=== PATIENT | female | born 1945 | race Caucasian/White ===

== ENCOUNTER 2018-11-18 11:42 | Emergency (ER) | payer OTHER, BC ==
--- NOTE | 2018-11-18 11:59 | PDOC ---
History of Present Illness - General Chief Complaint: Urinary Problem Stated Complaint: POSSIBLE UTI POSSIBLE INCREASING CONFUSION PER Time Seen by Provider: 11/18/18 11:53 History Source: Patient, Family - History of Present Illness Initial Comments: 11/18/18 12:27 The patient is a 72 year old female with a PMH of HTN and Dementia who presents to the ED with daughter following an unwitnessed fall yesterday as well as an episode of hallucinations. Daughter @ bedside assists in history. States patient's heard a fall in the bedroom yesterday morning and found patient on the floor. Daughter unaware of patient c/o pre fall chest pain, shortness of breath, lightheadedness, palpitations. Patient ambulatory after fall. Patient states she went "thump" but unable to provide much h/o fall, denies any head trauma. Daughter states yesterday a few hours after the fall patient started to see a dog in the room as well as insects flying around her head, neither of which were present. Daughter also notes a h/o fall 1 week previous while walking down the stairs @ [employer] w/o head trauma. Patient was ambulatory immediately after fall. As per daughter patient lives with her and completes her ADL's with some assistance. Patient diagnosed with Alzheimer's in 2013. Follows with a gerentologist, who comes and evaluates her at home monthly. Last evaluation was in October 2018 with no concerning findings. NKDA Surgical: hysterectomy Social: social alcohol, denies other toxic habits As per EMR, patient not previously evaluated in our ED Past History - Past Medical History Allergies/Adverse Reactions: Allergies Allergy/AdvReac Type Severity Reaction Status Date / Time No Known Allergies Allergy Verified 04/29/14 15:26 Home Medications: Ambulatory Orders Amlodipine Besylate [Norvasc -] 5 mg PO DAILY 04/29/14 Atorvastatin Calcium [Lipitor] 20 mg PO DAILY 11/18/18 Cholecalciferol (Vitamin D3) [Vitamin D] 2,000 unit PO DAILY 11/18/18 Donepezil HCl [Aricept] 10 mg PO DAILY 11/18/18 Omeprazole 20 mg PO DAILY 11/18/18 Sertraline HCl [Zoloft -] 150 mg PO DAILY 11/18/18 HTN: Yes Hypercholesterolemia: Yes - Surgical History Orthopedic Surgery: Yes (BUNION) - Suicide/Smoking/Psychosocial Hx Smoking History: Former smoker Have you smoked in the past 12 months: No If you are a former smoker, when did you quit?: 30 YEARS Hx Alcohol Use: Yes (SOCIAL) Drug/Substance Use Hx: No Review of Systems - Review of Systems Able to Perform ROS?: No (dementia) *Physical Exam - Physical Exam General Appearance: Yes: Nourished, Appropriately Dressed HEENT: positive: Normal Voice, Hearing Grossly Normal Neck: positive: Trachea midline, Supple Respiratory/Chest: positive: Lungs Clear, Normal Breath Sounds Cardiovascular: positive: Regular Rhythm, Regular Rate, S1, S2. negative: Edema , JVD, Murmur Vascular Pulses: Dorsalis-Pedis (R): 2+, Doralis-Pedis (L): 2+ Gastrointestinal/Abdominal: positive: Normal Bowel Sounds, Soft. negative: Guarding, Rebound, Tenderness, Hepatomegaly Musculoskeletal: positive: Other (No C-spine or L/T/S tenderness; full ROM of RUE; R lateral hematoma; 2+ radial pulse B/L) Extremity: positive: Pelvis Stable, Other (RUE lateral hematoma) Integumentary: positive: Normal Color, Dry, Warm Neurologic: positive: Fully Oriented, Alert. negative: Confused, Disoriented Heart Score/ECG Review - Electrocardiogram EKG: Normal - Age Age: >/= 65 - Risk Factors Risk Factors Heart Score: Yes Hx Hypertension Based on the list above the patient has:: 1-2 risk factors - Troponin Troponin: </= normal limit - ECG Intrepretation Rhythm: Regular Rhythm - [place] Woodlake: Normal - ST and T Non Specific ST-T Wave changes: No Flattened T Waves: No Prolonged Q-T Interval: No - ECG Impressions Normal ECG: Yes Bradycardia: Yes ED Treatment Course - LABORATORY CBC & Chemistry Diagram: 11/18/18 12:50 11/18/18 12:50 Medical Decision Making - Medical Decision Making 11/18/18 12:34 72 year old female presents s/p fall and isolated episode of hallucinations. History limited 2/2 to dementia. VS unremarkable. A&O x4 at presentation Will obtain head CT to r/o brain bleed. Also consider fall 2/2 to polypharmacy, vs. infection (possibly UTI - denies symptoms) vs. cardiac (less likely). In addition to CT head will also obtain XR of RUE/shoulder as well as basic labs, Troponin x1, EKG, UA/urine culture. 11/18/18 14:[address] negative for acute bleed; RUE/R shoulder negative for acute fracture. CBC shows no leukocytosis Urine clean Troponin (-) x1, ECG non-ischemic, bradycardic as documented in ECG section of EMR. CMP significant for mild hyponatremia (Na 134) c/w reported decreased PO intake , will encourage dietary PO intake. Patient at baseline during course of admission w/o repeat hallucinations, A&O x4 including correctly identifying resistor tester. At this time have low clinical suspicion for acute deterioration. Will discharge home with return precautions, close monitoring by family, PMD follow-up Clinical Impression: Concussion vs. Dementia I discussed the physical exam findings, ancillary test results and final diagnoses with the patient. I answered all of the patient's questions. The patient was satisfied with the care received and felt comfortable with the discharge plan and treatment plan. The patient will return to the Emergency Department with any new, persistent or worsening symptoms. *DC/Admit/Observation/Transfer Diagnosis at time of Disposition: Fall - Discharge Dispostion Disposition: HOME Condition at time of disposition: Stable Decision to Admit order: No - Referrals - Patient Instructions Additional Instructions: You were evaluated today for a fall. A cat scan of your head showed no bleed and a x-ray of your arm and shoulder showed no fracture. At this time you are safe for discharge home. Please follow-up with your primary care doctor in the next 3 days. Return to the Emergency Department for any new/worsening/concerning symptoms. - Post Discharge Activity
[2018-11-18 12:10] VITALS: TEMP 97.6; BMI 25.3
[2018-11-18] MEDS ORDERED: SODIUM CHLORIDE 0.9% 500 ML INFUS.BAG IV ONE (12:25)
[2018-11-18 12:37] LABS: PH,URINE 5.5 (4.5-8); URINE APPEARANCE Slightly; URINE BILIRUBIN 1+ (NEGATIVE); URINE COLOR Amber; URINE GLUCOSE (UA) Negative (NEGATIVE); URINE KETONE Trace (NEGATIVE); URINE LEUK ESTERASE Negative (NEGATIVE); URINE NITRITE Negative (NEGATIVE); URINE PROTEIN 2+ (NEGATIVE); URINE UROBILINOGEN 0.2 (0.2-1.0)
[2018-11-18 13:18] LABS: EOS % 1.5 % (0-4.5)
[2018-11-18 13:21] LABS: ALBUMIN 3.7 g/dl (3.5-5.0); ALK PHOS 65 U/L (32-92); ANION GAP 8 MMOL/L (8-16); BILIRUBIN,TOTAL 0.3 mg/dl (0.2-1.0); BLOOD UREA NITROGEN 17 mg/dl (7-18); CALCIUM 9.3 mg/dl (8.4-10.2); CHLORIDE 105 mmol/L (98-107); CO2 21 mmol/L (22-28); GLUCOSE,RANDOM 87 mg/dl (74-106); POTASSIUM 3.8 mmol/L (3.5-5.1); SGOT/AST 15 U/L (10-42); SGPT/ALT 10 U/L (10-40); SODIUM 134 mmol/L (136-145); TOT PROT 6.9 g/dl (6.4-8.3)
[2018-11-18 13:35] LABS: CALCIUM OXALATE CRYSTALS FEW /hpf (NONE SEEN); EPI CELLS 2+ /HPF; URINE MUCUS 2+; URINE RBC 0-2 /hpf (0-3)
--- NOTE | 2018-11-18 13:36 | PDOC ---
Attending Attestation - Resident Resident Name: Christiane Quintero - ED Attending Attestation I have performed the following: I have examined & evaluated the patient, The case was reviewed & discussed with the resident, I agree w/resident's findings & plan, Exceptions are as noted - HPI HPI: 11/18/18 17:46 72 year old female with a PMH of HTN and Dementia who presents to the ED with daughter following an unwitnessed fall yesterday as well as a breif episode of hallucinations which have resolved. Hx from daughter, patient's heard a fall in the bedroom yesterday morning and found patient on the floor. No documented history or stated history of chest pain shortness of breath dizziness lightheadedness headache prior to or after the fall patient laboratory after the fall. No complaints sent to the ED for evaluation. - Physicial Exam PE: 11/18/18 17:47 Vitals: Triage Vital signs reviewed General Appearance: no acute distress, well nourished well developed, Head: Atraumatic, Eyes: Pupils equal reactive round, extraocular movement intact Neck: Supple;No Nucal rigidity Chest Wall: Nontender Cardiac: Regular rate and rhythym, no murmurs, no rubs, no gallops, Lungs: Clear to auscultation bilateral, good air movement bilaterally, Abdomen: Soft, non distended, normal bowel sounds, non tender to palpation Extremities: Slight bruising to right arm. Skin: Warm and dry, no rashes or lesions, no rash, no petechiae Neuro: AOX2; Cranial Nerves 2-12 grossly intact, Strength intact to all extremities, Sensation intact to all extremities,gait normal Psych: normal mood, normal affect 11/18/18 17:48 - Medical Decision Making 72 year old female with a PMH of HTN and Dementia who presents to the ED with daughter following an unwitnessed fall yesterday as well as an episode of hallucinations. Per the daughter patient is currently back to baseline mental status. She has a nonfocal neurologic examination her vital signs laboratory analysis head CT and x-rays of her right arm which was a little bit sore or unremarkable At this point after long discussion with patient and daughter patient is safe to return home she'll follow up with her primary care physician this week he'll return to ED for any returning symptoms or for any concerns. Heart Score/ECG Review - ECG Impressions Comment:: EKG demonstrates sinus rhythm no ST elevations or T-wave inversions.
[2018-11-18 13:40] LABS: BASO % 1.2 % (0-2.0); HEMATOCRIT 36.9 % (32.4-45.2); HEMOGLOBIN 12.2 GM/dl (10.7-15.3); LYMPH % 26.5 % (8-40); MCH 27.1 pg (25.7-33.7); MCHC 33.1 g/dl (32.0-36.0); MEAN CELL VOLUME 81.9 fl (80-96); MEAN PLT VOLUME 7.7 fl (7.5-11.1); MONO % 5.3 % (3.8-10.2); NEUT % 65.5 % (42.8-82.8); PLATELET COUNT 395 K/MM3 (134-434); RBC 4.51 M/mm3 (3.60-5.2); RDW 12.9 % (11.6-15.6); WHITE BLOOD COUNT 8.8 K/mm3 (4.0-10.8)
[2018-11-18 14:39] VITALS: BP 160/83; PULSE 60
--- NOTE | 2018-11-19 10:22 | EKG ---
Test Reason : Blood Pressure : / mmHG Vent. Rate : 052 BPM Atrial Rate : 052 BPM P-R Int : 206 ms QRS Dur : 102 ms QT Int : 476 ms P-R-T Axes : 024 -28 -16 degrees QTc Int : 442 ms SINUS BRADYCARDIA OTHERWISE NORMAL ECG WHEN COMPARED WITH ECG OF 12-APR-2000 11:19, QRS AXIS SHIFTED LEFT Confirmed by CHARY SALDIVAR MD ([id number]) on 11/19/2018 10:21:47 AM Referred By: KRISTIN GROSSMAN Confirmed By:CHARY SALDIVAR MD
== END 2018-11-18 14:39 | disposition home or self-care (01) ==
LOC: FER 11:42
PROC: 3E0337Z Introduction of Electrolytic and Water Balance Substance into Peripheral Vein, Percutaneous Approach (ICD-10-PCS; principal; 2018-11-18)
DX: Z04.3 Encounter for examination and observation following other accident (principal); I10 Essential (primary) hypertension; F03.90 Unspecified dementia, unspecified severity, without behavioral disturbance, psychotic disturbance, mood disturbance, and anxiety; W18.39XA Other fall on same level, initial encounter; Y93.9 Activity, unspecified; Y92.009 Unspecified place in unspecified non-institutional (private) residence as the place of occurrence of the external cause
CPT/HCPCS: 36415; 70450-TC; 73030-TC-RT-FY; 73060-TC-RT-FY; 80053; 81003; 81015; 84484; 85025; 93005; 99283-25

== ENCOUNTER 2019-01-14 13:10 | Inpatient (IN) | payer OTHER, BC ==
--- NOTE | 2019-01-14 14:29 | PDOC ---
History of Present Illness - General Chief Complaint: Syncope/Near Syncope Stated Complaint: SYNCOPE,VOMITING Time Seen by Provider: 01/14/19 14:29 History Source: Patient Exam Limitations: Dementia - History of Present Illness Initial Comments: Pt is a 73 yo F, with PMH of HTN and Alzheimer's dementia, who is presenting after a syncopal episode. Pt is accompanied by her daughter. Pt is oriented only to person at baseline, and does not remember the incident. The daughter states she was showering her mother on a shower chair, when the pt stated she felt nauseous, and had 1 episode on NBNB vomiting. Pt was then moved to the toilet, where she had 1 episode of NB loose brown stool, and then had a short ~ few seconds syncopal episode. Pt was lethargic afterwards, but had no generalized shaking, no tongue biting, and did not fall/hit her head. Pt does not take any anti-coagulant medications. Pt recently saw her PCP for cough/ reflux symptoms, and was told "she may have aspirated" per the daughter, but was sent home with no antibiotics. Pt denies any recent fevers/chills, headache , vision changes, chest pain, palpitations, SOB, abdominal pain, urinary symptoms, constipation, or leg swelling. She has had no other vomiting or loose stools this week. Pt has been seen for recent falls (presented to [place] [facility] in November 2018) , and was discharged after negative work-up for fall (negative CT, x-rays at that time). Social: Pt denies any cigarette, alcohol, or drug use. Pt denies any recent travel or sick contacts. Surgical: no relevant history. Family: no relevant history. 01/14/19 16:22 Past History - Travel Traveled outside of the country in the last 30 days: No Close contact w/someone who was outside of country & ill: No - Past Medical History Allergies/Adverse Reactions: Allergies Allergy/AdvReac Type Severity Reaction Status Date / Time No Known Allergies Allergy Verified 04/29/14 15:26 Home Medications: Ambulatory Orders Amlodipine Besylate [Norvasc -] 5 mg PO DAILY 04/29/14 Atorvastatin Calcium [Lipitor] 20 mg PO DAILY 11/18/18 Cholecalciferol (Vitamin D3) [Vitamin D] 2,000 unit PO DAILY 11/18/18 Donepezil HCl [Aricept] 10 mg PO DAILY 11/18/18 Omeprazole 20 mg PO DAILY 11/18/18 Sertraline HCl [Zoloft -] 150 mg PO DAILY 11/18/18 Hx Myocardial Infarction: No COPD: No CHF: No Diabetes: No HTN: Yes Hypercholesterolemia: Yes Psychiatric Problems: Yes (DEMENTIA DEPRESION) - Surgical History Abdominal Surgery: No Cardiac Surgery: No GI Surgery: No Neurologic Surgery: No Orthopedic Surgery: Yes ([facility]) - Suicide/Smoking/Psychosocial Hx Smoking History: Former smoker Have you smoked in the past 12 months: No If you are a former smoker, when did you quit?: 30 YEARS Hx Alcohol Use: Yes (SOCIAL) Drug/Substance Use Hx: No Review of Systems - Review of Systems Able to Perform ROS?: Yes Is the patient limited Danish proficient: No Constitutional: Yes: Weight Stable. No: Chills, Diaphoresis, Fever, Loss of Appetite, Weakness HEENTM: No: Recent change in vision, Double Vision, Nose Congestion, Hearing Loss, Throat Pain, Throat Swelling Respiratory: No: Cough, Orthopnea, Shortness of Breath Cardiac (ROS): Yes: Syncope. No: Chest Pain, Edema, Irregular Heart Rate, Lightheadedness, Palpitations, Chest Tightness ABD/GI: Yes: See HPI, Diarrhea, Nausea, Vomiting. No: Constipated, Poor Appetite, Poor Fluid Intake : No: Burning, Dysuria, Frequency, Pain, Urgency Musculoskeletal: No: Back Pain, Joint Pain Integumentary: No: Rash Neurological: No: Headache, Numbness, Paresthesia, Weakness, Unsteady Gait, Ataxia, Dizziness Psychiatric: No: Sleep Pattern Change, Change in Appetite Endocrine: No: Increased Urine, Change in Weight Hematologic/Lymphatic: No: Anemia, Blood Clots, Easy Bleeding, Easy Bruising All Other Systems: Reviewed and Negative *Physical Exam - Physical Exam Comments: Vitals stable, pt afebrile. Pt in NAD, normal body habitus. PE showed pt alert, but oriented to person and place only (pt baseline). hospital admitting clerk generally intact, muscular strength and sensation intact. Oropharynx without erythema or exudates. Dry oral mucosal membranes, decreased skin turgor. No nasal congestion , hearing intact. Clear heart sounds, S1/S2, no JVD, b/l pedal edema, or heart murmur. Clear lung sounds, no respiratory distress, wheezes, crackles, accessory muscle use, or respiratory distress. No abdominal or CVA tenderness to palpation, no rebound, no guarding. Abdomen soft, non-distended, and with normoactive bowel sounds. Skin without jaundice or rash. 01/14/19 16:22 ED Treatment Course - LABORATORY CBC & Chemistry Diagram: 01/14/19 15:03 01/14/19 15:03 Medical Decision Making - Medical Decision Making Pt was seen at bedside, also will be seen by attending Dr. Ho. Pt presenting after a syncopal episode. Pt is accompanied by her daughter. Pt is oriented only to person at baseline, and does not remember the incident. The daughter states she was showering her mother on a shower chair, when the pt stated she felt nauseous, and had 1 episode on NBNB vomiting. Pt was then moved to the toilet, where she had 1 episode of NB loose brown stool, and then had a short ~ few seconds syncopal episode. Pt was lethargic afterwards, but had no generalized shaking, no tongue biting, and did not fall/hit her head. Pt does not take any anti-coagulant medications. Pt recently saw her PCP for cough/ reflux symptoms, and was told "she may have aspirated" per the daughter, but was sent home with no antibiotics. Pt denies any recent fevers/chills, headache , vision changes, chest pain, palpitations, SOB, abdominal pain, urinary symptoms, constipation, or leg swelling. She has had no other vomiting or loose stools this week. Pt has been seen for recent falls (presented to [place] [facility] in November 2018) , and was discharged after negative work-up for fall (negative CT, x-rays at that time). Bedside glucose today 81. Vitals stable, pt afebrile. Pt in NAD, normal body habitus. PE showed pt alert, but oriented to person and place only (pt baseline). hospital admitting clerk generally intact, muscular strength and sensation intact. Oropharynx without erythema or exudates. Dry oral mucosal membranes, decreased skin turgor. No nasal congestion , hearing intact. Clear heart sounds, S1/S2, no JVD, b/l pedal edema, or heart murmur. Clear lung sounds, no respiratory distress, wheezes, crackles, accessory muscle use, or respiratory distress. No abdominal or CVA tenderness to palpation, no rebound, no guarding. Abdomen soft, non-distended, and with normoactive bowel sounds. Skin without jaundice or rash. Considering hypovolemia (GI infectious, dehydration) vs new cardiac pathology ( ACS vs arrhythmia) Ordered work-up including CBC, CMP, PT/INR, influenza, cardiac profile, chest x- ray, non-contrast head CT. Provided 500 mL IV NS for improvement of dry membranes/dehydration. Will continue to reassess pt and monitor for symptomatic improvement. ECG: Junctional rhythm, QRS 96, HR 54. TWIs in lateral leads, with flattening throughout. LAD which was present on prior ECG (11/2018). Pt HR on prior ER visit was in 50s-60s. 01/14/19 15:15 Chest x-ray shows patchy b/l infiltrates. Pt has no cardiac history (no CHF, no b/l pedal edema) Pt taken for head CT scan. 01/14/19 15:33 CBC: mild WBC 12.6, H/H stable CMP WNL, Trop <.02 01/14/19 16:17 Coags WNL. Influenza negative. 01/14/19 16:25 Considering elevated WBC, pending pt urine sample for UA and urine culture before admission. 01/14/19 16:36 UA pending in lab. Chest x-ray: mild b/l interstitial lung markings, no acute lung pathology. Borderline cardiomegaly. Head CT: moderate atrophy, no acute intracranial pathology. 01/14/19 17:31 UA negative for infection. Paging hospitalist team for admission. 01/14/19 17:35 Hospitalist team accepted pt for admission to [facility]. Pt comfortable, tolerating PO intake at bedside. 01/14/19 18:33 *DC/Admit/Observation/Transfer Diagnosis at time of Disposition: Syncope Qualifiers: Syncope type: unspecified Qualified Code(s): R55 - Syncope and collapse - Discharge Dispostion Condition at time of disposition: Stable Decision to Admit order: Yes - Referrals - Patient Instructions - Post Discharge Activity
[2019-01-14] MEDS ORDERED: SODIUM CHLORIDE 1,000 ML IV STA (14:54)
--- NOTE | 2019-01-14 15:23 | PDOC ---
Attending Attestation - HPI HPI: 01/14/19 15:27 The patient is a 73 year old female, with a significant past medical history of hypertension, dementia, multiple falls, who presents to the emergency department , accompanied by daughter who is a nurse, for evaluation after witnessing her mother have a syncopal episode today. The daughter states she sat her mother in a chair, the patient had an episode of NBNB emesis and then syncopized. The daughter states her mother loss control of her bowels after the syncopal episode. The daughter denies head trauma or shaking. Allergies: NKDA - Physicial Exam PE: 01/14/19 15:29 GENERAL: The patient is in no acute distress. HEAD: Normal with no signs of trauma. EYES: PERRLA, EOMI, sclera anicteric, conjunctiva clear. ENT: Ears normal, nares patent, oropharynx clear without exudates. Moist mucous membranes. NECK: Normal range of motion, supple without lymphadenopathy, JVD, or masses. LUNGS: Breath sounds equal, clear to auscultation bilaterally. No wheezes, and no crackles. HEART:Regular rate and rhythm, normal S1 and S2 without murmur, rub or gallop. ABDOMEN: Soft, nontender, normoactive bowel sounds. No guarding, no rebound. No masses palpable. EXTREMITIES: Normal range of motion, no edema. No clubbing or cyanosis. No erythema, or tenderness. NEUROLOGICAL: (+) alert, oriented to self. Cranial nerves II through XII grossly intact. Normal speech. No focal neurological deficits. MUSCULOSKELETAL: Back non-tender to palpation, no CVA tenderness SKIN: Warm, Dry, normal turgor, no rashes or lesions noted. <Teresa Quan - Last Filed: 01/14/19 15:26> - Resident Resident Name: Bita Pichardo - ED Attending Attestation I have performed the following: I have examined & evaluated the patient, The case was reviewed & discussed with the resident, I agree w/resident's findings & plan, Exceptions are as noted - Medical Decision Making 01/14/19 16:27 73 yo F s/p multiple falls Syncopal episode today No fevers or chills No chest pain, headache, abdominal pain Laboratory Tests 01/14/19 01/14/19 01/14/19 15:03 15:03 15:03 WBC 12.6 H Hgb 12.4 Hct 37.1 Plt Count 383 INR 0.98 BUN 18 Creatinine 0.9 Creatine Kinase 41 Troponin I < 0.02 Influenza A (Rapid) Influenza B (Rapid) 01/14/19 16:07 WBC Hgb Hct Plt Count INR BUN Creatinine Creatine Kinase Troponin I Influenza A (Rapid) Negative Influenza B (Rapid) Negative Will plan to place on observation given h/o recent falls and syncope Clinical impression: syncope, initial presentation <Monica Ho - Last Filed: 01/15/19 21:36> Attestations - Attestations 01/14/19 15:30 Documentation prepared by Teresa Quan, acting as medical surgical tech for Monica Ho MD <Teresa Quan - Last Filed: 01/14/19 15:26>
[2019-01-14 15:45] LABS: BASO % 0.5 % (0-2.0); EOS % 0.5 % (0-4.5); HEMATOCRIT 37.1 % (32.4-45.2); HEMOGLOBIN 12.4 GM/dL (10.7-15.3); LYMPH % 15.2 % (8-40); MCHC 33.5 g/dl (32.0-36.0); MEAN CELL VOLUME 80.6 fl (80-96); MEAN PLT VOLUME 7.2 fl (7.5-11.1); MONO % 5.4 % (3.8-10.2); NEUT % 78.4 % (42.8-82.8); PLATELET COUNT 383 K/MM3 (134-434); RDW 14.7 % (11.6-15.6); WHITE BLOOD COUNT 12.6 K/mm3 (4.0-10.0)
--- NOTE | 2019-01-14 16:03 | EKG ---
Test Reason : Blood Pressure : / mmHG Vent. Rate : 054 BPM Atrial Rate : 288 BPM P-R Int : 000 ms QRS Dur : 096 ms QT Int : 460 ms P-R-T Axes : 000 -25 -23 degrees QTc Int : 436 ms POOR DATA QUALITY, INTERPRETATION MAY BE ADVERSELY AFFECTED SINUS BRADYCARDIA CANNOT RULE OUT ANTERIOR INFARCT , AGE UNDETERMINED ABNORMAL ECG T WAVE INVERSION NOW EVIDENT IN LATERAL LEADS Confirmed by JANNA CARR, CHARY ([id number]) on 01/14/2019 4:03:21 PM Referred By: Confirmed By:CHARY SALDIVAR MD
[2019-01-14 16:09] LABS: ALBUMIN 3.6 g/dl (3.4-5.0); ALK PHOS 69 U/L (45-117); ANION GAP 9 MMOL/L (8-16); BILIRUBIN,TOTAL 0.3 mg/dL (0.2-1); BLOOD UREA NITROGEN 18 mg/dL (7-18); CALCIUM 9.1 mg/dL (8.5-10.1); CHLORIDE 105 mmol/L (98-107); CO2 24 mmol/L (21-32); CREATININE 0.9 mg/dL (0.55-1.3); GLUCOSE,RANDOM 81 mg/dL (74-106); MAGNESIUM 2.5 mg/dL (1.8-2.4); POTASSIUM 3.9 mmol/L (3.5-5.1); SGOT/AST 14 U/L (15-37); SGPT/ALT 13 U/L (13-61); SODIUM 138 mmol/L (136-145); TOT PROT 6.9 g/dl (6.4-8.2)
[2019-01-14 16:23] LABS: INR 0.98 (0.83-1.09); PROTHROMBIN TIME (PATIENT) 11.6 SEC (9.7-13.0)
[2019-01-14 17:24] LABS: URINE APPEARANCE CLEAR; URINE BILIRUBIN NEGATIVE (<2.0 mg/dL); URINE COLOR LTYELLOW; URINE GLUCOSE (UA) NEGATIVE (NEGATIVE); URINE KETONE NEGATIVE (NEGATIVE); URINE LEUK ESTERASE NEGATIVE (NEGATIVE); URINE NITRITE NEGATIVE (NEGATIVE); URINE PROTEIN NEGATIVE (NEGATIVE); URINE UROBILINOGEN NEGATIVE mg/dL (0.2-1.0)
--- NOTE | 2019-01-14 19:10 | HP ---
CHIEF COMPLAINT: Syncope PCP: Dr. Pedro Duong HISTORY OF PRESENT ILLNESS: The patient is a 73 yo f w/ PMH HTN, Alzheimer's dementia, mitral valve prolapse who was brought in by her daughter from home after a syncopal episode. The daughter states that she was showering the patient when she had a syncopal episode. The patient was seated in a chair in the shower when she leaned forward and became unresponsive. The patient became responsive again and stated that she did not feel well, after which she had an episode of NBNB vomiting. The patient's daughter picked her up and placed her on the toilet, where she had another syncopal episode with unresponsiveness, this one lasting approx. 1 minute. at this point, the patient's daughter called EMS. Per the patient's daughter, she had several other syncopal episodes and falls, some witnessed, some unwitnessed all since this past November. In addition to this, the patient has needed more assistance with her ADLs over the past month. Patient also has had decreased fluid intake. Currently, the patient's daughter states that the patient is at her baseline mental status. Patient denies chest pain, SOB, abdominal pain, dizziness, lightheadedness. ER course was notable for: (1) WBC 12.6, mag 2.5, UA neg, flu neg (2) CT head negative (3) Recent Travel: none PAST MEDICAL HISTORY: see HPI PAST SURGICAL HISTORY: none Social History: Smoking: denies Alcohol: denies Drugs: denies Family History: non-contributory Allergies No Known Allergies Allergy (Verified 04/29/14 15:26) HOME MEDICATIONS: Home Medications Medication Instructions Recorded Amlodipine Besylate [Norvasc -] 5 mg PO DAILY 04/29/14 Atorvastatin Calcium [Lipitor] 20 mg PO DAILY 11/18/18 Cholecalciferol (Vitamin D3) 2,000 unit PO DAILY 11/18/18 [Vitamin D] Donepezil HCl [Aricept] 10 mg PO DAILY 11/18/18 Omeprazole 20 mg PO DAILY 11/18/18 Sertraline HCl [Zoloft -] 150 mg PO DAILY 11/18/18 REVIEW OF SYSTEMS CONSTITUTIONAL: Absent: fever, chills, diaphoresis, generalized weakness, malaise, loss of appetite, weight change HEENT: Absent: rhinorrhea, nasal congestion, throat pain, throat swelling, difficulty swallowing, mouth swelling, ear pain, eye pain, visual changes CARDIOVASCULAR: Absent: chest pain, syncope, palpitations, irregular heart rate, lightheadedness , peripheral edema RESPIRATORY: Absent: cough, shortness of breath, dyspnea with exertion, orthopnea, wheezing, stridor, hemoptysis GASTROINTESTINAL: Absent: abdominal pain, abdominal distension, nausea, vomiting, diarrhea, constipation, melena, hematochezia GENITOURINARY: Absent: dysuria, frequency, urgency, hesitancy, hematuria, flank pain, genital pain MUSCULOSKELETAL: Absent: myalgia, arthralgia, joint swelling, back pain, neck pain SKIN: Absent: rash, itching, pallor HEMATOLOGIC/IMMUNOLOGIC: Absent: easy bleeding, easy bruising, lymphadenopathy, frequent infections ENDOCRINE: Absent: unexplained weight gain, unexplained weight loss, heat intolerance, cold intolerance NEUROLOGIC: Absent: headache, focal weakness or paresthesias, dizziness, unsteady gait, seizure, mental status changes, bladder or bowel incontinence PSYCHIATRIC: Absent: anxiety, depression, suicidal or homicidal ideation, hallucinations. PHYSICAL EXAMINATION GENERAL: Awake, alert, oriented to self only, in no acute distress. HEAD: Normal with no signs of trauma. EYES: Pupils equal, round and reactive to light, extraocular movements intact, sclera anicteric, conjunctiva clear. No lid lag. NECK: Normal range of motion, supple without lymphadenopathy, JVD, or masses. LUNGS: Breath sounds equal, clear to auscultation bilaterally. No wheezes, and no crackles. No accessory muscle use. HEART: Regular rate and rhythm, normal S1 and S2 without murmur, rub or gallop. ABDOMEN: Soft, nontender, not distended, normoactive bowel sounds, no guarding, no rebound, no masses. No hepatomegaly or splenomegaly. LOWER EXTREMITIES: 2+ pulses, warm, well-perfused. No calf tenderness. No peripheral edema. NEUROLOGICAL: Cranial nerves II-X intact. Normal speech. Normal gait. Strength 5/5 on all 4 limbs SKIN: Warm, dry, normal turgor, no rashes or lesions noted, normal capillary refill. Laboratory Results - last 24 hr 01/14/19 01/14/19 01/14/19 15:00 15:03 15:03 WBC 12.6 H RBC 4.60 Hgb 12.4 Hct 37.1 MCV 80.6 MCH 27.0 MCHC 33.5 RDW 14.7 Plt Count 383 MPV 7.2 L Absolute Neuts (auto) 9.9 H Neutrophils % 78.4 Lymphocytes % 15.2 Monocytes % 5.4 Eosinophils % 0.5 Basophils % 0.5 Nucleated RBC % 0 PT with INR 11.60 INR 0.98 Sodium Potassium Chloride Carbon Dioxide Anion Gap BUN Creatinine Creat Clearance w eGFR POC Glucometer 81 Random Glucose Calcium Magnesium Total Bilirubin AST ALT Alkaline Phosphatase Creatine Kinase Troponin I Total Protein Albumin Urine Color Urine Appearance Urine pH Ur Specific [place] Urine Protein Urine Glucose (UA) Urine Ketones Urine Blood Urine Nitrite Urine Bilirubin Urine Urobilinogen Ur Leukocyte Esterase Influenza A (Rapid) Influenza B (Rapid) 01/14/19 01/14/19 01/14/19 15:03 16:07 17:06 WBC RBC Hgb Hct MCV MCH MCHC RDW Plt Count MPV Absolute Neuts (auto) Neutrophils % Lymphocytes % Monocytes % Eosinophils % Basophils % Nucleated RBC % PT with INR INR Sodium 138 Potassium 3.9 Chloride 105 Carbon Dioxide 24 Anion Gap 9 BUN 18 Creatinine 0.9 Creat Clearance w eGFR > 60 POC Glucometer Random Glucose 81 Calcium 9.1 Magnesium 2.5 H Total Bilirubin 0.3 AST 14 L ALT 13 Alkaline Phosphatase 69 Creatine Kinase 41 Troponin I < 0.02 Total Protein 6.9 Albumin 3.6 Urine Color Ltyellow Urine Appearance Clear Urine pH 7.0 Ur Specific [place] 1.012 Urine Protein Negative Urine Glucose (UA) Negative Urine Ketones Negative Urine Blood Negative Urine Nitrite Negative Urine Bilirubin Negative Urine Urobilinogen Negative Ur Leukocyte Esterase Negative Influenza A (Rapid) Negative Influenza B (Rapid) Negative ASSESSMENT/PLAN: The patient is a 73 yo f w/ PMH HTN, alzheimers dementia, mitral valve prolapse who was BIBEMS after a syncopal episode at home. #syncopal episode possibly 2/2 cardiac vs vasovagal eitology -BP Sittin/87, HR 67 -BP Stand[place]/85, HR 88 -consider cardiology eval in AM -consider neuro eval in AM -consider MRI brain -consider carotid doppler in AM -trend trop -trend EKG -hold zoloft overnight #Dementia -c/w aricept 10mg #HTN -BP controlled -c/w norvasc 5mg #HLD -fasting lipids in AM -c/w lipitor 20mg -c/w zetia #FEN -no fluids indicated -lytes WNL -sodium controlled diet #prophy -lovenox 40mg SQ daily #dispo -admit tele inpatient Visit type - Emergency Visit Emergency Visit: Yes ED Registration Date: 01/14/19 Care time: The patient presented to the Emergency Department on the above date and was hospitalized for further evaluation of their emergent condition. - New Patient This patient is new to me today: Yes Date on this admission: 01/14/19 - Critical Care Critical Care patient: No
[2019-01-14] MEDS ORDERED: SODIUM CHLORIDE 1,000 ML IV SCH (19:15)
--- NOTE | 2019-01-14 19:16 | PN ---
Teaching Attending Note Name of Resident: Ernst Munoz ATTENDING PHYSICIAN STATEMENT I saw and evaluated the patient. I reviewed the resident's note and discussed the case with the resident. I agree with the resident's findings and plan as documented. SUBJECTIVE: Patient is a 73 year old woman with PMH of HTN, Mitral Valve Prolapse and Alzheimer's dementia, who is presenting after a syncopal episode. She is accompanied by her daughter, is oriented only to person at baseline, and does not remember the incident. The daughter states she was showering her mother on a shower chair, when the patient stated she felt nauseous, and had one episode on NBNB vomiting. She was then moved to the toilet, where she had one episode of NB loose brown stool, and then had a short ~few seconds syncopal episode. Patient was lethargic afterwards, but had no generalized shaking, no tongue biting, and did not fall/hit her head. She does not take any anti-coagulant medications and recently saw her PCP for cough/reflux symptoms, and was told "she may have aspirated" per the daughter, but was sent home with no antibiotics. She denies any recent fevers/chills, headache, vision changes, chest pain, palpitations, SOB, abdominal pain, urinary symptoms, constipation, or leg swelling. She has had no other vomiting or loose stools this week. She was seen for recent falls (presented to [facility] in November 2018), and was discharged after negative work-up for fall (negative CT, x-rays). OBJECTIVE: Alert and no orthostasis HEENT: No Jaundice, eye redness or discharge, PERRLA, EOMI. Normocephalic, atraumatic. External ears are normal and hearing is grossly intact. No nasal discharge. Neck: Supple, nontender. No palpable adenopathy or thyromegaly. No JVD Chest: Good effort. Clear to auscultation and percussion. Heart: Regular. No S3, rub or murmur Abdomen: Not distended, soft, nontender and no HSM. No rebound or guarding. Normoactive bowel sounds. Ext: Peripheral pulses intact. No leg edema. Skin: Warm and dry. No petechiae, rash or ecchymosis. Neuro: Alert. Oriented to person. Slow gait. CN 2-12 grossly intact. Sensation grossly intact in all four extremities and DTR are symmetric. Current Medications Generic Name Dose Route Start Last Admin Trade Name Tracy PRN Reason Stop Dose Admin Enoxaparin Sodium 40 mg 01/15/19 10:00 Lovenox - SQ DAILY [facility] Sodium Chloride 1,000 mls @ 50 mls/hr 01/14/19 19:15 Normal Saline - IV 01/15/19 15:14 ASDIR [facility] Home Medications Medication Instructions Recorded Amlodipine Besylate [Norvasc -] 5 mg PO DAILY 04/29/14 Atorvastatin Calcium [Lipitor] 20 mg PO DAILY 11/18/18 Cholecalciferol (Vitamin D3) 2,000 unit PO DAILY 11/18/18 [Vitamin D] Donepezil HCl [Aricept] 10 mg PO DAILY 11/18/18 Omeprazole 20 mg PO DAILY 11/18/18 Sertraline HCl [Zoloft -] 150 mg PO DAILY 11/18/18 Abnormal Lab Results 01/14/19 01/14/19 15:03 15:03 WBC 12.6 H MPV 7.2 L Absolute Neuts (auto) 9.9 H Magnesium 2.5 H AST 14 L ASSESSMENT AND PLAN: 1. Syncope - Etiology unclear. Had bradycardia on presentation with new T wave inversion in V4-5. CXR shows cardiomegaly and increased interstitial markings. Initial troponin is negative. Will admit to telemetry to rule out acute OH. Mild leukocytosis is unexplained - no other evidence of infection. Flu swab is negative. Will repeat CBC stat. Will get ECHO, fasting lipids, carotid doppler and brain MRI. Though not very common, fainting is a reported side effect of ZOLOFT. Will consult cardiology and neuroloy. Will avoid aggressive IV fluids for now. Got I liter IV NS in the ER. 2. DVT prophylaxis - Lovenox 40 mg SQ q 24 hours. 3. Advance directives - Full code
[2019-01-14 21:40] VITALS: BMI 26.9
[2019-01-15] MEDS ORDERED: diphenhydrAMINE HCL 25 MG CAPSULE (FP) PO ONE ×3 (00:05→23:38)
[2019-01-15 08:29] LABS: PROTHROMBIN TIME (PATIENT) 11.8 SEC (9.7-13.0)
[2019-01-15 08:32] LABS: ACTIVATED PTT 27.9 SECONDS (25.2-36.5)
[2019-01-15 08:38] LABS: ALBUMIN 3.3 g/dl (3.4-5.0); ALK PHOS 66 U/L (45-117); ANION GAP 9 MMOL/L (8-16); BILIRUBIN,TOTAL 0.3 mg/dL (0.2-1); BLOOD UREA NITROGEN 15 mg/dL (7-18); CALCIUM 8.9 mg/dL (8.5-10.1); CHLORIDE 105 mmol/L (98-107); CHOLESTEROL 160 mg/dL (50-200); CO2 24 mmol/L (21-32); GLUCOSE,RANDOM 82 mg/dL (74-106); HDL CHOLESTEROL 55 mg/dL (40-60); POTASSIUM 3.5 mmol/L (3.5-5.1); SGOT/AST 11 U/L (15-37); SGPT/ALT 13 U/L (13-61); SODIUM 139 mmol/L (136-145); TOT PROT 6.4 g/dl (6.4-8.2); TRIGLYCERIDES 110 mg/dL (0-150)
[2019-01-15 08:43] LABS: HEMATOCRIT 33.9 % (32.4-45.2); HEMOGLOBIN 11.5 GM/dL (10.7-15.3); MCH 27.1 pg (25.7-33.7); MEAN CELL VOLUME 79.6 fl (80-96); MEAN PLT VOLUME 7.2 fl (7.5-11.1); PLATELET COUNT 355 K/MM3 (134-434); RBC 4.25 M/mm3 (3.60-5.2); RDW 14.5 % (11.6-15.6); WHITE BLOOD COUNT 10.3 K/mm3 (4.0-10.0)
[2019-01-15] MEDS: ENOXAPARIN NA (PORCINE) 40 MG/0.4 ML DISP.SYRIN SQ SCH (09:15)
--- NOTE | 2019-01-15 12:52 | PN ---
Teaching Attending Note Name of Resident: Chris Amato ATTENDING PHYSICIAN STATEMENT I saw and evaluated the patient. I reviewed the resident's note and discussed the case with the resident. I agree with the resident's findings and plan as documented. SUBJECTIVE: Patient is comfortable with no acute distress, no shortness of breath, no nausea or vomiting. OBJECTIVE: Vital Signs Temperature 97.3 F L 01/14/19 14:09 Pulse Rate 84 01/15/19 05:35 Respiratory Rate 17 01/15/19 05:35 Blood Pressure 132/77 01/15/19 05:35 O2 Sat by Pulse Oximetry (%) 98 01/15/19 05:35 Initial Vital Signs Temp Pulse Resp BP Pulse Ox 97.3 F L 55 L 17 124/62 100 01/14/19 14:09 01/14/19 14:09 01/14/19 14:09 01/14/19 14:09 01/14/19 14:09 GENERAL: Awake, alert, oriented to self only, in no acute distress. HEAD: Normal with no signs of trauma. EYES: Pupils equal, round and reactive to light, extraocular movements intact, sclera anicteric, conjunctiva clear. No lid lag. NECK: Normal range of motion, supple without lymphadenopathy, JVD, or masses. LUNGS: Breath sounds equal, clear to auscultation bilaterally. No wheezes, and no crackles. No accessory muscle use. HEART: Regular rate and rhythm, normal S1 and S2 without murmur, rub or gallop. ABDOMEN: Soft, nontender, not distended, normoactive bowel sounds, no guarding, no rebound, no masses. No hepatomegaly or splenomegaly. LOWER EXTREMITIES: 2+ pulses, warm, well-perfused. No calf tenderness. No peripheral edema. NEUROLOGICAL: Cranial nerves II-X intact. Normal speech. Normal gait. Strength 5/5 on all 4 limbs SKIN: Warm, dry, normal turgor, no rashes or lesions noted, normal capillary refill. CBCD WBC 10.3 K/mm3 (4.0-10.0) H 01/15/19 07:05 RBC 4.25 M/mm3 (3.60-5.2) 01/15/19 07:05 Hgb 11.5 GM/dL (10.7-15.3) 01/15/19 07:05 Hct 33.9 % (32.4-45.2) 01/15/19 07:05 MCV 79.6 fl (80-96) L 01/15/19 07:05 MCHC 34.0 g/dl (32.0-36.0) 01/15/19 07:05 RDW 14.5 % (11.6-15.6) 01/15/19 07:05 Plt Count 355 K/MM3 (134-434) 01/15/19 07:05 MPV 7.2 fl (7.5-11.1) L 01/15/19 07:05 CMP Sodium 139 mmol/L (136-145) 01/15/19 07:05 Potassium 3.5 mmol/L (3.5-5.1) 01/15/19 07:05 Chloride 105 mmol/L (98-107) 01/15/19 07:05 Carbon Dioxide 24 mmol/L (21-32) 01/15/19 07:05 Anion Gap 9 MMOL/L (8-16) 01/15/19 07:05 BUN 15 mg/dL (7-18) 01/15/19 07:05 Creatinine 1.0 mg/dL (0.55-1.3) 01/15/19 07:05 Creat Clearance w eGFR 54.20 (>60) 01/15/19 07:05 Random Glucose 82 mg/dL (74-106) 01/15/19 07:05 Calcium 8.9 mg/dL (8.5-10.1) 01/15/19 07:05 Total Bilirubin 0.3 mg/dL (0.2-1) 01/15/19 07:05 AST 11 U/L (15-37) L 01/15/19 07:05 ALT 13 U/L (13-61) 01/15/19 07:05 Alkaline Phosphatase 66 U/L (45-117) 01/15/19 07:05 Total Protein 6.4 g/dl (6.4-8.2) 01/15/19 07:05 Albumin 3.3 g/dl (3.4-5.0) L 01/15/19 07:05 CARDIAC ENZYMES Creatine Kinase 41 U/L (26-192) 01/14/19 15:03 Troponin I < 0.02 ng/ml (0.00-0.05) 01/15/19 07:05 Current Medications Generic Name Dose Route Start Last Admin Trade Name Tracy PRN Reason Stop Dose Admin Enoxaparin Sodium 40 mg 01/15/19 10:00 01/15/19 09:15 Lovenox - SQ 40 mg DAILY [facility] Administration Home Medications Medication Instructions Recorded Amlodipine Besylate [Norvasc -] 5 mg PO DAILY 04/29/14 Atorvastatin Calcium [Lipitor] 20 mg PO DAILY 11/18/18 Cholecalciferol (Vitamin D3) 2,000 unit PO DAILY 11/18/18 [Vitamin D] Donepezil HCl [Aricept] 10 mg PO DAILY 11/18/18 Omeprazole 40 mg PO DAILY 11/18/18 Sertraline HCl [Zoloft -] 150 mg PO DAILY 11/18/18 Ezetimibe [Zetia] 10 mg PO 01/15/19 ASSESSMENT AND PLAN: This patient is a 73 yo female with PMHx of HTN, alzheimers dementia, mitral valve prolapse who was BIBEMS after a syncopal episode at home. #syncopal episode most likely vasovagal , orthostatic BP, cardiology eval appreciated. Carotid duplex, neuro consult #Dementia continue with aricept 10mg #HTN: BP controlled, continue norvasc 5mg #HLD : fasting lipids in AM , continue lipitor 20mg and zetia DVT px: lovenox 40mg SQ daily admit tele inpatient as per admitting team
--- NOTE | 2019-01-15 13:07 | CON.CARD ---
Cardiology Consult (text) - Consultation Consultation Note: cc: syncope hpi: 73 f hx htn, hld, dementia, here s/p syncope. Hx from family as pts dementia limits her history. Daughter was giving her a shower seated and pt reported nausea then vomited and had BM. She had LOC for few seconds per daughter. 2 similar episodes in past, mos apart. No cp sob palps dizzy pnd orthopnea le edema. Pt feeling well now. pmh: per hpi psh: nc social: no tob fam: nc ros: unable to obtain 2/2 dementia meds: Home Medications Medication Instructions Recorded Amlodipine Besylate [Norvasc -] 5 mg PO DAILY 04/29/14 Atorvastatin Calcium [Lipitor] 20 mg PO DAILY 11/18/18 Cholecalciferol (Vitamin D3) 2,000 unit PO DAILY 11/18/18 [Vitamin D] Donepezil HCl [Aricept] 10 mg PO DAILY 11/18/18 Omeprazole 40 mg PO DAILY 11/18/18 Sertraline HCl [Zoloft -] 150 mg PO DAILY 11/18/18 Ezetimibe [Zetia] 10 mg PO 01/15/19 pe: Vital Signs Period Temp Pulse Resp BP Sys/Cano Pulse Ox Last 24 Hr 97.3 F 55-84 17-18 124-132/62-77 98-100 nad no jvd rrr s1s2 no mrg cta bl nl eff awake alert confused no le e/c/c abd nt nd pos bs no jaundice diaphoresis pos dp pt no carotid bruits Laboratory Last Values WBC 10.3 K/mm3 (4.0-10.0) H 01/15/19 07:05 RBC 4.25 M/mm3 (3.60-5.2) 01/15/19 07:05 Hgb 11.5 GM/dL (10.7-15.3) 01/15/19 07:05 Hct 33.9 % (32.4-45.2) 01/15/19 07:05 MCV 79.6 fl (80-96) L 01/15/19 07:05 MCH 27.1 pg (25.7-33.7) 01/15/19 07:05 MCHC 34.0 g/dl (32.0-36.0) 01/15/19 07:05 RDW 14.5 % (11.6-15.6) 01/15/19 07:05 Plt Count 355 K/MM3 (134-434) 01/15/19 07:05 MPV 7.2 fl (7.5-11.1) L 01/15/19 07:05 Absolute Neuts (auto) 9.9 K/mm3 (1.5-8.0) H 01/14/19 15:03 Neutrophils % 78.4 % (42.8-82.8) 01/14/19 15:03 Lymphocytes % 15.2 % (8-40) 01/14/19 15:03 Monocytes % 5.4 % (3.8-10.2) 01/14/19 15:03 Eosinophils % 0.5 % (0-4.5) 01/14/19 15:03 Basophils % 0.5 % (0-2.0) 01/14/19 15:03 Nucleated RBC % 0 % (0-0) 01/14/19 15:03 PT with INR 11.80 SEC (9.7-13.0) 01/15/19 07:05 INR 1.00 (0.83-1.09) 01/15/19 07:05 PTT (Actin FS) 27.9 SECONDS (25.2-36.5) 01/15/19 07:05 Sodium 139 mmol/L (136-145) 01/15/19 07:05 Potassium 3.5 mmol/L (3.5-5.1) 01/15/19 07:05 Chloride 105 mmol/L (98-107) 01/15/19 07:05 Carbon Dioxide 24 mmol/L (21-32) 01/15/19 07:05 Anion Gap 9 MMOL/L (8-16) 01/15/19 07:05 BUN 15 mg/dL (7-18) 01/15/19 07:05 Creatinine 1.0 mg/dL (0.55-1.3) 01/15/19 07:05 Creat Clearance w eGFR 54.20 (>60) 01/15/19 07:05 POC Glucometer 81 UNITS (80-120) 01/14/19 15:00 Random Glucose 82 mg/dL (74-106) 01/15/19 07:05 Calcium 8.9 mg/dL (8.5-10.1) 01/15/19 07:05 Phosphorus 4.0 mg/dL (2.5-4.9) 01/15/19 07:05 Magnesium 2.0 mg/dL (1.8-2.4) 01/15/19 07:05 Total Bilirubin 0.3 mg/dL (0.2-1) 01/15/19 07:05 AST 11 U/L (15-37) L 01/15/19 07:05 ALT 13 U/L (13-61) 01/15/19 07:05 Alkaline Phosphatase 66 U/L (45-117) 01/15/19 07:05 Creatine Kinase 41 U/L (26-192) 01/14/19 15:03 Troponin I < 0.02 ng/ml (0.00-0.05) 01/15/19 07:05 Total Protein 6.4 g/dl (6.4-8.2) 01/15/19 07:05 Albumin 3.3 g/dl (3.4-5.0) L 01/15/19 07:05 Triglycerides 110 mg/dL (0-150) 01/15/19 07:05 Cholesterol 160 mg/dL (50-200) 01/15/19 07:05 Total LDL Cholesterol 87 mg/dL (5-100) 01/15/19 07:05 HDL Cholesterol 55 mg/dL (40-60) 01/15/19 07:05 TSH 1.82 uIU/ml (0.358-3.74) 01/15/19 07:05 Urine Color Ltyellow 01/14/19 17:06 Urine Appearance Clear 01/14/19 17:06 Urine pH 7.0 (5.0-8.0) 01/14/19 17:06 Ur Specific [place] 1.012 (1.010-1.035) 01/14/19 17:06 Urine Protein Negative (NEGATIVE) 01/14/19 17:06 Urine Glucose (UA) Negative (NEGATIVE) 01/14/19 17:06 Urine Ketones Negative (NEGATIVE) 01/14/19 17:06 Urine Blood Negative (NEGATIVE) 01/14/19 17:06 Urine Nitrite Negative (NEGATIVE) 01/14/19 17:06 Urine Bilirubin Negative (<2.0 mg/dL) 01/14/19 17:06 Urine Urobilinogen Negative mg/dL (0.2-1.0) 01/14/19 17:06 Ur Leukocyte Esterase Negative (NEGATIVE) 01/14/19 17:06 Influenza A (Rapid) Negative 01/14/19 16:07 Influenza B (Rapid) Negative 01/14/19 16:07 ecg: sr, nl intervals, nonspec tw changes, no sig change prior cxr: clear lungs a/p: 73 f hx htn, hld, dementia, here s/p syncope. syncope: -seems vasovagal based on description -no signs chf, acs, arrhythmia -echo benign -ortho vs wnl -rec'd increase po hydration as per family pt not drinking much at home htn: -cont norvasc hld: -cont statin cardiac pate ok for dc
--- NOTE | 2019-01-15 13:13 | ECHO ---
Name: LALIT ALBERTO Exam:Adult Echocardiogram Study Date: 01/15/2019 07:39 AM Age: 73 yrs Reason For Study: MVP Height: 67 in Weight: 157 lb BSA: 1.8 m2 MMode/2D Measurements & Calculations IVSd: 0.74 cm Ao root diam: 3.3 cm LVIDd: 4.9 cm LA dimension: 3.8 cm LVIDs: 2.8 cm ACS: 1.9 cm LVPWd: 0.76 cm IVSs: 1.2 cm LVPWs: 1.2 cm EDV(Teich): 111.5 ml ESV(Teich): 29.0 ml Doppler Measurements & Calculations MV E max ever: 72.1 cm/sec Ao V2 max: 145.4 cm/sec MV A max ever: 74.3 cm/sec Ao max P.5 mmHg MV E/A: 0.97 Ao V2 mean: 100.7 cm/sec Ao mean P.6 mmHg Ao V2 VTI: 32.6 cm AI P1/2t: 545.9 msec AI max ever: 325.8 cm/sec TR max ever: 235.1 cm/sec AI max P.5 mmHg TR max P.3 mmHg AI dec slope: 174.8 cm/sec2 PI end-d ever: 89.6 cm/sec Med Peak E' Ever: 5.4 cm/sec Med E/e': 13.4 Lat Peak E' Ever: 6.3 cm/sec Lat E/e': 11.4 Procedure A complete two-dimensional transthoracic echocardiogram was performed (2D, M-mode, Doppler and color flow Doppler). Left Ventricle The left ventricular size, thickness and function are normal. The left ventricular ejection fraction is normal. Ejection Fraction = 60-65%. The left ventricular wall motion is normal. Right Ventricle The right ventricle is normal in size and function. Atria Normal left and right atrial size and function. Mitral Valve There is no mitral regurgitation noted. Tricuspid Valve There is mild tricuspid regurgitation. Right ventricular systolic pressure is normal. Aortic Valve The aortic valve is trileaflet. No hemodynamically significant valvular aortic stenosis. No aortic regurgitation is present. Pulmonic Valve There is no pulmonic valvular regurgitation. Great Vessels The aortic root is normal size. Pericardium/Pleura There is no pericardial effusion. Interpretation Summary The left ventricular size, thickness and function are normal The right ventricle is normal in size and function. There is mild tricuspid regurgitation. MD Pedro Denis 01/15/2019 01:12 PM
--- NOTE | 2019-01-15 14:28 | PN ---
Physical Exam: SUBJECTIVE: Patient seen and examined at bedside. Daughter at bedside providing information. Pt not in any acute distress. Resting comfortably. OBJECTIVE: Vital Signs Period Temp Pulse Resp BP Sys/Cano Pulse Ox Last 24 Hr 55-84 17-18 128-132/66-77 98-100 GENERAL: NAD Resting in bed. HEAD: NC/AT EYES: EOMI ENT: MMM Neck supple NECK: Trachea midline, full range of motion, supple. LUNGS: Dec breath sounds at bases HEART: RRR S1S2 ABDOMEN: NDNT No HSM EXTREMITIES: No CCE SKIN: Warm, dry, normal turgor, no rashes or lesions noted Laboratory Results - last 24 hr 01/14/19 01/14/19 01/14/19 15:00 15:03 15:03 WBC 12.6 H RBC 4.60 Hgb 12.4 Hct 37.1 MCV 80.6 MCH 27.0 MCHC 33.5 RDW 14.7 Plt Count 383 MPV 7.2 L Absolute Neuts (auto) 9.9 H Neutrophils % 78.4 Lymphocytes % 15.2 Monocytes % 5.4 Eosinophils % 0.5 Basophils % 0.5 Nucleated RBC % 0 PT with INR 11.60 INR 0.98 PTT (Actin FS) Sodium Potassium Chloride Carbon Dioxide Anion Gap BUN Creatinine Creat Clearance w eGFR POC Glucometer 81 Random Glucose Calcium Phosphorus Magnesium Total Bilirubin AST ALT Alkaline Phosphatase Creatine Kinase Troponin I Total Protein Albumin Triglycerides Cholesterol Total LDL Cholesterol HDL Cholesterol TSH Urine Color Urine Appearance Urine pH Ur Specific [place] Urine Protein Urine Glucose (UA) Urine Ketones Urine Blood Urine Nitrite Urine Bilirubin Urine Urobilinogen Ur Leukocyte Esterase Influenza A (Rapid) Influenza B (Rapid) 01/14/19 01/14/19 01/14/19 15:03 16:07 17:06 WBC RBC Hgb Hct MCV MCH MCHC RDW Plt Count MPV Absolute Neuts (auto) Neutrophils % Lymphocytes % Monocytes % Eosinophils % Basophils % Nucleated RBC % PT with INR INR PTT (Actin FS) Sodium 138 Potassium 3.9 Chloride 105 Carbon Dioxide 24 Anion Gap 9 BUN 18 Creatinine 0.9 Creat Clearance w eGFR > 60 POC Glucometer Random Glucose 81 Calcium 9.1 Phosphorus Magnesium 2.5 H Total Bilirubin 0.3 AST 14 L ALT 13 Alkaline Phosphatase 69 Creatine Kinase 41 Troponin I < 0.02 Total Protein 6.9 Albumin 3.6 Triglycerides Cholesterol Total LDL Cholesterol HDL Cholesterol TSH Urine Color Ltyellow Urine Appearance Clear Urine pH 7.0 Ur Specific [place] 1.012 Urine Protein Negative Urine Glucose (UA) Negative Urine Ketones Negative Urine Blood Negative Urine Nitrite Negative Urine Bilirubin Negative Urine Urobilinogen Negative Ur Leukocyte Esterase Negative Influenza A (Rapid) Negative Influenza B (Rapid) Negative 01/15/19 01/15/19 01/15/19 00:05 07:05 07:05 WBC 10.3 H RBC 4.25 Hgb 11.5 Hct 33.9 MCV 79.6 L MCH 27.1 MCHC 34.0 RDW 14.5 Plt Count 355 MPV 7.2 L Absolute Neuts (auto) Neutrophils % Lymphocytes % Monocytes % Eosinophils % Basophils % Nucleated RBC % PT with INR 11.80 INR 1.00 PTT (Actin FS) 27.9 Sodium Potassium Chloride Carbon Dioxide Anion Gap BUN Creatinine Creat Clearance w eGFR POC Glucometer Random Glucose Calcium Phosphorus Magnesium Total Bilirubin AST ALT Alkaline Phosphatase Creatine Kinase Troponin I < 0.02 Total Protein Albumin Triglycerides Cholesterol Total LDL Cholesterol HDL Cholesterol TSH Urine Color Urine Appearance Urine pH Ur Specific [place] Urine Protein Urine Glucose (UA) Urine Ketones Urine Blood Urine Nitrite Urine Bilirubin Urine Urobilinogen Ur Leukocyte Esterase Influenza A (Rapid) Influenza B (Rapid) 01/15/19 07:05 WBC RBC Hgb Hct MCV MCH MCHC RDW Plt Count MPV Absolute Neuts (auto) Neutrophils % Lymphocytes % Monocytes % Eosinophils % Basophils % Nucleated RBC % PT with INR INR PTT (Actin FS) Sodium 139 Potassium 3.5 Chloride 105 Carbon Dioxide 24 Anion Gap 9 BUN 15 Creatinine 1.0 Creat Clearance w eGFR 54.20 POC Glucometer Random Glucose 82 Calcium 8.9 Phosphorus 4.0 Magnesium 2.0 Total Bilirubin 0.3 AST 11 L ALT 13 Alkaline Phosphatase 66 Creatine Kinase Troponin I < 0.02 Total Protein 6.4 Albumin 3.3 L Triglycerides 110 Cholesterol 160 Total LDL Cholesterol 87 HDL Cholesterol 55 TSH 1.82 Urine Color Urine Appearance Urine pH Ur Specific [place] Urine Protein Urine Glucose (UA) Urine Ketones Urine Blood Urine Nitrite Urine Bilirubin Urine Urobilinogen Ur Leukocyte Esterase Influenza A (Rapid) Influenza B (Rapid) Active Medications Generic Name Dose Route Start Last Admin Trade Name Freq PRN Reason Stop Dose Admin Enoxaparin Sodium 40 mg 01/15/19 10:00 01/15/19 09:15 Lovenox - SQ 40 mg DAILY DOC Administration ASSESSMENT/PLAN: The patient is a 73 yo f w/ PMH HTN, alzheimers dementia, mitral valve prolapse who was BIBEMS after a syncopal episode at home while taking a shower. #syncopal episode possibly 2/2 cardiac vs vasovagal etiology -BP Sittin/87, HR 67 -BP Standin/85, HR 88 -Dr Denis on board---> LV size WNL in size, function and thickness. EF 60- 65%. -Troponins neg x3 -trend EKG -Carotid ultrasound performed. Pending official read -Neurology consult. -Head CT negative #Dementia - Aricept 10mg #HTN -Norvasc 5mg #HLD -fasting lipids WNL -lipitor 10mg -zetia 10 mg #FEN -NS@42 cc -Monitor Electrolytes -sodium controlled diet #proph -lovenox 40mg SQ daily #dispo -tele Visit type - Emergency Visit Emergency Visit: Yes ED Registration Date: 01/14/19 Care time: The patient presented to the Emergency Department on the above date and was hospitalized for further evaluation of their emergent condition. - New Patient This patient is new to me today: Yes Date on this admission: 01/15/19 - Critical Care Critical Care patient: No - Discharge Referral Referred to [facility] Med P.C.: No
--- NOTE | 2019-01-15 15:36 | EKG ---
Test Reason : Blood Pressure : / mmHG Vent. Rate : 059 BPM Atrial Rate : 059 BPM P-R Int : 222 ms QRS Dur : 106 ms QT Int : 598 ms P-R-T Axes : 051 -22 -22 degrees QTc Int : 592 ms SINUS BRADYCARDIA WITH 1ST DEGREE A-V BLOCK NONSPECIFIC ST AND T WAVE ABNORMALITY ABNORMAL ECG WHEN COMPARED WITH ECG OF 14-JAN-2019 14:25, SINUS RHYTHM HAS REPLACED JUNCTIONAL RHYTHM NONSPECIFIC T WAVE ABNORMALITY HAS REPLACED INVERTED T WAVES IN ANTERIOR LEADS QT HAS LENGTHENED Confirmed by KRISTIN ZELAYA MD ([id number]) on 01/15/2019 3:36:17 PM Referred By: Confirmed By:KRISTIN ZELAYA MD
[2019-01-15] MEDS ORDERED: SODIUM CHLORIDE 1,000 ML IV SCH (17:45)
[2019-01-15] MEDS ORDERED: FLU VACCINE QUAD 60 MCG/0.5 ML (MDV 18-19) IM ONE (18:40)
[2019-01-15] MEDS ORDERED: ATORVASTATIN CA 10 MG TABLET (FP) PO SCH (22:00)
[2019-01-16 07:34] LABS: HEMATOCRIT 34.2 % (32.4-45.2); HEMOGLOBIN 11.4 GM/dL (10.7-15.3); MCH 26.7 pg (25.7-33.7); MCHC 33.4 g/dl (32.0-36.0); MEAN CELL VOLUME 79.8 fl (80-96); MEAN PLT VOLUME 7.2 fl (7.5-11.1); PLATELET COUNT 340 K/MM3 (134-434); RBC 4.28 M/mm3 (3.60-5.2); RDW 14.7 % (11.6-15.6); WHITE BLOOD COUNT 11.6 K/mm3 (4.0-10.0)
[2019-01-16 08:33] LABS: ANION GAP 8 MMOL/L (8-16); BLOOD UREA NITROGEN 14 mg/dL (7-18); CHLORIDE 106 mmol/L (98-107); CO2 24 mmol/L (21-32); GLUCOSE,RANDOM 100 mg/dL (74-106); MAGNESIUM 2.6 mg/dL (1.8-2.4); PHOSPHOROUS 3.9 mg/dL (2.5-4.9); POTASSIUM 3.9 mmol/L (3.5-5.1); SODIUM 137 mmol/L (136-145)
--- NOTE | 2019-01-16 09:32 | CON.NEURO ---
Consult - History of Present Illness History of Present Illness: 73 yo f w/ PMH HTN, Alzheimer's dementia, mitral valve prolapse who was brought in by her daughter from home after a syncopal episode. The daughter states that she was showering the patient when she had a syncopal episode. The patient was seated in a chair in the shower when she leaned forward and became unresponsive. The patient became responsive again and stated that she did not feel well, after which she had an episode of NBNB vomiting. The patient's daughter picked her up and placed her on the toilet, where she had another syncopal episode with unresponsiveness, this one lasting approx. 1 minute. at this point, the patient's daughter called EMS. passed out x 15 seconmds, mild NV prior and diarrhea. similar events last couple months, no HX of SZ. now back at baseline. Doppler (-) HD CT -white matter changes - Alcohol/Substance Use Hx Alcohol Use: Yes (SOCIAL) - Smoking History Smoking history: Former smoker Have you smoked in the past 12 months: No If you are a former smoker, when did you quit?: 30 YEARS Home Medications - Allergies Allergies/Adverse Reactions: Allergies Allergy/AdvReac Type Severity Reaction Status Date / Time No Known Allergies Allergy Verified 04/29/14 15:26 - Home Medications Home Medications: Ambulatory Orders Amlodipine Besylate [Norvasc -] 5 mg PO DAILY 04/29/14 Atorvastatin Calcium [Lipitor] 20 mg PO DAILY 11/18/18 Cholecalciferol (Vitamin D3) [Vitamin D] 2,000 unit PO DAILY 11/18/18 Donepezil HCl [Aricept] 10 mg PO DAILY 11/18/18 Omeprazole 40 mg PO DAILY 11/18/18 Sertraline HCl [Zoloft -] 150 mg PO DAILY 11/18/18 Ezetimibe [Zetia] 10 mg PO 01/15/19 Physical Exam-Neuro Vital Signs: Vital Signs Temperature 98.2 F 01/16/19 05:00 Pulse Rate 68 01/16/19 05:00 Respiratory Rate 20 01/16/19 05:00 Blood Pressure 153/83 01/16/19 05:00 O2 Sat by Pulse Oximetry (%) 97 01/15/19 19:12 Constitutional: Yes: Well Nourished Labs: CBC, BMP 01/16/19 06:40 01/16/19 06:40 INR, PTT INR 1.00 (0.83-1.09) 01/15/19 07:05 - Neuro Exam Level Of Consciousness: Yes: Alert (awake, alert, not oriented to place, yr, season, EOMI, no drift, no tremor, no focal weakness) Imaging - Results Cat Scan: Report Reviewed, Image Reviewed Problem List - Problems (1) Dementia in Alzheimer's disease Code(s): G30.9 - ALZHEIMER'S DISEASE, UNSPECIFIED; F02.80 - DEMENTIA IN OTH DISEASES CLASSD ELSWHR W/O BEHAVRL DISTURB (2) Syncope Code(s): R55 - SYNCOPE AND COLLAPSE Qualifiers: Syncope type: unspecified Qualified Code(s): R55 - Syncope and collapse Assessment/Plan 73 yo f w/ PMH HTN, Alzheimer's dementia, mitral valve prolapse who was brought in by her daughter from home after a syncopal episode. The daughter states that she was showering the patient when she had a syncopal episode. The patient was seated in a chair in the shower when she leaned forward and became unresponsive. The patient became responsive again and stated that she did not feel well, after which she had an episode of NBNB vomiting. The patient's daughter picked her up and placed her on the toilet, where she had another syncopal episode with unresponsiveness, this one lasting approx. 1 minute. at this point, the patient's daughter called EMS. Per the patient's daughter, she had several other syncopal episodes and falls, some witnessed, some unwitnessed all since this past November. NO HX of Seizure. back to baseline, HD CT -white matter changes AP : Syncope--likely in setting of possible enteritis/ dehydration--no clear stigmata for Seizure. Doppler (-) Given recurrent events can get routine EEG-can be done outpt. No MRI nec. Dementia- ALZ type, mild, due to start namenda as an outpt, as well as will arrange NEUROPSYCH testing as an outpt. neurology cleared, DR RICHTER [phone]
[2019-01-16] MEDS ORDERED: amLODIPine BESYLATE 5 MG TABLET (FP) PO SCH (10:00)
[2019-01-16] MEDS ORDERED: EZETIMIBE 10 MG TABLET (FP) PO SCH (10:00)
[2019-01-16] MEDS ORDERED: FLU VACCINE QUAD 60 MCG/0.5 ML (MDV 18-19) IM ONE (10:00)
[2019-01-16] MEDS ORDERED: DONEPEZIL HCL 10 MG TABLET (FP) PO SCH (10:00)
[2019-01-16] MEDS ORDERED: SERTRALINE HCL 50 MG TABLET (FP) PO SCH (10:00)
[2019-01-16] MEDS: ENOXAPARIN NA (PORCINE) 40 MG/0.4 ML DISP.SYRIN SQ SCH (10:23)
--- NOTE | 2019-01-16 10:38 | PN ---
Progress Note (short form) - Note Progress Note: s: no cp sob palps dizzy o: Vital Signs Period Temp Pulse Resp BP Sys/Cano Pulse Ox Last 24 Hr 97.5 F-98.8 F 18- 17-20 128-168/54-83 97 nad no jvd rrr s1s2 no mrg cta bl nl eff awake alert confused no le e/c/c abd nt nd pos bs no jaundice diaphoresis Current Medications Generic Name Dose Route Start Last Admin Trade Name Tracy PRN Reason Stop Dose Admin Amlodipine Besylate 5 mg 01/16/19 10:00 01/16/19 10:24 Norvasc - PO 5 mg DAILY DOC Administration Atorvastatin Calcium 10 mg 01/15/19 22:00 01/15/19 23:11 Lipitor - PO 10 mg HS DOC Administration Donepezil HCl 10 mg 01/16/19 10:00 01/16/19 10:24 Aricept - PO 10 mg DAILY DOC Administration Ezetimibe 10 mg 01/16/19 10:00 01/16/19 10:24 Zetia - PO 10 mg DAILY DOC Administration Enoxaparin Sodium 40 mg 01/15/19 10:00 01/16/19 10:23 Lovenox - SQ 40 mg DAILY DOC Administration Sodium Chloride 1,000 mls @ 42 mls/hr 01/15/19 17:45 01/15/19 23:12 Normal Saline - IV 42 mls/hr ASDIR DOC Administration Sertraline HCl 150 mg 01/16/19 10:00 01/16/19 10:24 Zoloft - PO 150 mg DAILY DOC Administration CBC, BMP 01/16/19 06:40 01/16/19 06:40 ecg: sr, nl intervals, nonspec tw changes, no sig change prior cxr: clear lungs tele: sr echo 01/2019: nl lv/rv, mild tr, nl rvsp a/p: 73 f hx htn, hld, dementia, here s/p syncope. syncope: -seems vasovagal based on description -no signs chf, acs, arrhythmia -echo, carotids, tele benign -ortho vs wnl -rec'd increase po hydration as per family pt not drinking much at home htn: -cont norvasc hld: -cont statin cardiac pate ok for dc
--- NOTE | 2019-01-16 14:02 | DS ---
Physical Exam: SUBJECTIVE: Patient seen and examined at bedside. No acute events overnight. Daughter at bedside. OBJECTIVE: Vital Signs Period Temp Pulse Resp BP Sys/Cano Pulse Ox Last 24 Hr 97.5 F-98.8 F 18-100 17-20 111-168/54-83 97 PHYSICAL EXAM GENERAL: NAD Resting in bed. HEAD: Atraumatic/ Normocephalic EYES: EOMI Sclera Clear ENT: MMM Neck supple NECK: Trachea midline, full range of motion, supple. LUNGS: Dec breath sounds at bases HEART: RRR S1S2 ABDOMEN: nontender nondistended no guarding or rigidity EXTREMITIES: No CCE SKIN: Warm, dry, normal turgor, no rashes or lesions noted LABS Laboratory Results - last 24 hr 01/16/19 01/16/19 06:40 06:40 WBC 11.6 H RBC 4.28 Hgb 11.4 Hct 34.2 MCV 79.8 L MCH 26.7 MCHC 33.4 RDW 14.7 Plt Count 340 MPV 7.2 L Sodium 137 Potassium 3.9 Chloride 106 Carbon Dioxide 24 Anion Gap 8 BUN 14 Creatinine 1.0 Creat Clearance w eGFR 54.20 Random Glucose 100 Calcium 9.0 Phosphorus 3.9 Magnesium 2.6 H HOSPITAL COURSE: Date of Admission:01/14/19 Pt is a 73 y/o lady with a PMH of HTN, alzheimers dementia, and mitral valve prolapse who presented to the hospital after experiencing a syncopal episode at her house while she was in the shower. Imaging of pt's head did not reveal any bleeding or acute changes. Pt also underwent an echo and carotid doppler which were both WNL. Orthostatic Vital signs were WNL. Pt was informed to follow up with Neurology to undergo an EEG as well as assess a possible shuffling gait reported by pt's daughter. Date of Discharge: 01/16/19 Minutes to complete discharge: 35 Discharge Summary Reason For Visit: SYNCOPE Current Active Problems Dementia in Alzheimer's disease (Acute) Syncope (Acute) Condition: Improved - Instructions Diet, Activity, Other Instructions: You presented to the hospital due to syncope. You underwent imaging studies to determine the cause of your syncope. Imaging did not reveal any causes of your syncope. You were seen by a cocoa butter filter operator and a Neurologist during your stay. It is very important for you to follow up with these specialist to further work you up. In addition, it was noted that you are experiencing an abnormality with your gait. This may be indicative of a neurological disease called Parkinson's disease. A referral has been attached to your paperwork for you to follow up with the neurologist once you leave the hospital. Please follow up with the following provider's within 1 week: Dr Ethan Chong--Neurologist WITHIN A WEEK PERIOD. PLEASE CALL FOR AN APPOINTMENT. Your Primary Care Physician Dr Pedro Denis--Education Finance Processor If you begin to experience dizziness, chest pain, shortness of breath, or any other symptoms, please return to the emergency department immediately. Please continue to take all of your home medications as prescribed. Referrals: Pedro Denis MD [Staff Physician] - 2 Weeks Ethan Chong DO [Staff Physician] - 1 Week Disposition: CARE HOME FACILITY - Home Medications Comprehensive Discharge Medication List: Ambulatory Orders Amlodipine Besylate [Norvasc -] 5 mg PO DAILY 04/29/14 Atorvastatin Calcium [Lipitor] 20 mg PO DAILY 11/18/18 Cholecalciferol (Vitamin D3) [Vitamin D] 2,000 unit PO DAILY 11/18/18 Donepezil HCl [Aricept] 10 mg PO DAILY 11/18/18 Omeprazole 40 mg PO DAILY 11/18/18 Sertraline HCl [Zoloft -] 150 mg PO DAILY 11/18/18 Ezetimibe [Zetia] 10 mg PO 01/15/19 This patient is new to me today: No Emergency Visit: Yes ED Registration Date: 01/14/19 Care time: The patient presented to the Emergency Department on the above date and was hospitalized for further evaluation of their emergent condition. Critical Care patient: No - Discharge Referral Referred to [facility] Med P.C.: No
[2019-01-16 15:11] VITALS: BP 129/70; PULSE 68; TEMP 97.4
--- NOTE | 2019-01-16 19:25 | PN ---
Teaching Attending Note Name of Resident: Chris Amato ATTENDING PHYSICIAN STATEMENT I saw and evaluated the patient. I reviewed the resident's note and discussed the case with the resident. I agree with the resident's findings and plan as documented. SUBJECTIVE: Patient is comfortable with no acute distress, no shortness of breath. As per daughter who is at bedside, patient has a shuffeling gait. OBJECTIVE: Vital Signs Temperature 97.4 F L 01/16/19 15:00 Pulse Rate 68 01/16/19 15:00 Respiratory Rate 18 01/16/19 15:00 Blood Pressure 129/70 01/16/19 15:00 O2 Sat by Pulse Oximetry (%) 97 01/15/19 19:12 GENERAL: Awake, alert, oriented to self only, in no acute distress. HEAD: Normal with no signs of trauma. EYES: Pupils equal, round and reactive to light, extraocular movements intact, sclera anicteric, conjunctiva clear. NECK: Normal range of motion, supple without lymphadenopathy, JVD, or masses. LUNGS: Breath sounds equal, clear to auscultation bilaterally. No wheezes, and no crackles. No accessory muscle use. HEART: Regular rate and rhythm, normal S1 and S2 without murmur, rub or gallop. ABDOMEN: Soft, nontender, not distended, normoactive bowel sounds, no guarding, no rebound, no masses. No hepatomegaly or splenomegaly. EXTREMITIES: 2+ pulses, warm, well-perfused. No calf tenderness. No peripheral edema. NEUROLOGICAL: Cranial nerves II-X intact. Normal speech. Normal gait. Strength 5/5 on all 4 limbs SKIN: Warm, dry, normal turgor, no rashes or lesions noted, normal capillary refill. CBCD WBC 11.6 K/mm3 (4.0-10.0) H 01/16/19 06:40 RBC 4.28 M/mm3 (3.60-5.2) 01/16/19 06:40 Hgb 11.4 GM/dL (10.7-15.3) 01/16/19 06:40 Hct 34.2 % (32.4-45.2) 01/16/19 06:40 MCV 79.8 fl (80-96) L 01/16/19 06:40 MCHC 33.4 g/dl (32.0-36.0) 01/16/19 06:40 RDW 14.7 % (11.6-15.6) 01/16/19 06:40 Plt Count 340 K/MM3 (134-434) 01/16/19 06:40 MPV 7.2 fl (7.5-11.1) L 01/16/19 06:40 CMP Sodium 137 mmol/L (136-145) 01/16/19 06:40 Potassium 3.9 mmol/L (3.5-5.1) 01/16/19 06:40 Chloride 106 mmol/L (98-107) 01/16/19 06:40 Carbon Dioxide 24 mmol/L (21-32) 01/16/19 06:40 Anion Gap 8 MMOL/L (8-16) 01/16/19 06:40 BUN 14 mg/dL (7-18) 01/16/19 06:40 Creatinine 1.0 mg/dL (0.55-1.3) 01/16/19 06:40 Creat Clearance w eGFR 54.20 (>60) 01/16/19 06:40 Random Glucose 100 mg/dL (74-106) 01/16/19 06:40 Calcium 9.0 mg/dL (8.5-10.1) 01/16/19 06:40 Total Bilirubin 0.3 mg/dL (0.2-1) 01/15/19 07:05 AST 11 U/L (15-37) L 01/15/19 07:05 ALT 13 U/L (13-61) 01/15/19 07:05 Alkaline Phosphatase 66 U/L (45-117) 01/15/19 07:05 Total Protein 6.4 g/dl (6.4-8.2) 01/15/19 07:05 Albumin 3.3 g/dl (3.4-5.0) L 01/15/19 07:05 CARDIAC ENZYMES Creatine Kinase 41 U/L (26-192) 01/14/19 15:03 Troponin I < 0.02 ng/ml (0.00-0.05) 01/15/19 07:05 Home Medications Medication Instructions Recorded Amlodipine Besylate [Norvasc -] 5 mg PO DAILY 04/29/14 Atorvastatin Calcium [Lipitor] 20 mg PO DAILY 11/18/18 Cholecalciferol (Vitamin D3) 2,000 unit PO DAILY 11/18/18 [Vitamin D3] Donepezil HCl [Aricept] 10 mg PO DAILY 11/18/18 Omeprazole 40 mg PO DAILY 11/18/18 Sertraline HCl [Zoloft -] 150 mg PO DAILY 11/18/18 Ezetimibe [Zetia] 10 mg PO 01/15/19 Amlodipine Besylate [Norvasc -] 5 mg PO DAILY tablet 01/16/19 Atorvastatin Ca [Lipitor] 10 mg PO HS tablet 01/16/19 Donepezil HCl [Aricept -] 10 mg PO DAILY tablet 01/16/19 Ezetimibe [Zetia -] 10 mg PO DAILY tablet 01/16/19 Sertraline HCl [Zoloft -] 150 mg PO DAILY tablet 01/16/19 ASSESSMENT AND PLAN: This patient is a 73 yo female with PMHx of HTN, alzheimers dementia, mitral valve prolapse who was BIBEMS after a syncopal episode at home. #syncopal episode most likely vasovagal , No orthostatics are noted, cardiology and neuro appreciated. Carotid duplex within normal limit, neuro consult discussed with since patient is having a shuffleing gait, patient will be discharged home with follow with neurology by next week. relayed the info to dr. Bird. regarding the shuffling gait. #Dementia continue with aricept 10mg #HTN: BP controlled, continue norvasc 5mg #HLD :continue lipitor 20mg and zetia DVT px: lovenox 40mg SQ daily discharge patient home.
== END 2019-01-16 17:40 | disposition home health service (06) | DRG 312 ==
LOC: JER 13:10 → JERBED 17:35 → OBSVTOIN 19:34 → J4W 01-15 18:09
PROVIDERS: ADMIT Internal Medicine; ATTEND Internal Medicine
DX: R55 Syncope and collapse (principal); E86.0 Dehydration; B95.4 Other streptococcus as the cause of diseases classified elsewhere; I10 Essential (primary) hypertension; R29.6 Repeated falls; I34.1 Nonrheumatic mitral (valve) prolapse; G30.9 Alzheimer's disease, unspecified; F02.80 Dementia in other diseases classified elsewhere, unspecified severity, without behavioral disturbance, psychotic disturbance, mood disturbance, and anxiety; Z87.891 Personal history of nicotine dependence
CPT/HCPCS: 36415; 70450-TC; 71045-TC-FY; 80048; 80053; 80061; 81003; 82550; 82962; 83721; 83735; 84100; 84443; 84484; 85025; 85027; 85610; 85730; 87086; 87186; 87804; 90688; 93005; 93010; 93306-TC; 93880-TC; 97116-GP; 97161-GP; 99285-25; G0008; G0378; J7030

== ENCOUNTER 2019-02-09 12:36 | Observation (INO) | payer OTHER, BC ==
--- NOTE | 2019-02-09 13:01 | PDOC ---
Attending Attestation - HPI HPI: 02/09/19 13:49 73 year old female with a past medical history of hypertension, hyperlipidemia, and dementia who presents to the emergency department for evaluation of syncope. As per daughter at bedside, patient had a witnessed syncopal episode in bathroom while sitting on shower stool. Daughter denies headstrike. Pt recently stopped neurontin due to abnormal behavior. Prior admission for syncope on 01/14/19. - Medical Decision Making 02/09/19 13:49 Documentation prepared by Pascual Pacheco, acting as medical nurse for Julisa Amaya MD. <Pascual Pacheco - Last Filed: 02/09/19 13:49> - Resident Resident Name: Christiane Quintero - ED Attending Attestation I have performed the following: I have examined & evaluated the patient, The case was reviewed & discussed with the resident, I agree w/resident's findings & plan, Exceptions are as noted - Physicial Exam PE: GENERAL: Awake, alert, and fully oriented, in no acute distress HEAD: No signs of trauma EYES: PERRLA, EOMI, sclera anicteric, conjunctiva clear ENT: Auricles normal inspection, hearing grossly normal, nares patent, oropharynx clear without exudates. Moist mucosa. Hard of hearing on L side. NECK: Normal ROM, supple, no lymphadenopathy, JVD, or masses LUNGS: Breath sounds equal, clear to auscultation bilaterally. No wheezes, and no crackles HEART: Regular rate and rhythm, normal S1 and S2, no murmurs, rubs or gallops ABDOMEN: Soft, nontender, normoactive bowel sounds. No guarding, no rebound. No masses EXTREMITIES: Normal range of motion, no edema. No clubbing or cyanosis. No cords, erythema, or tenderness NEUROLOGICAL: Cranial nerves II through XII grossly intact. Normal speech. Motor intact. +Hyperesthesia. SKIN: Warm, Dry, normal turgor, no rashes or lesions noted. <uJlisa Amaya - Last Filed: 02/09/19 16:21>
--- NOTE | 2019-02-09 13:03 | PDOC ---
History of Present Illness - General Chief Complaint: Syncope/Near Syncope Stated Complaint: SYNCOPE Time Seen by Provider: 02/09/19 12:47 - History of Present Illness Initial Comments: 02/09/19 13:30 The patient is a 73 year old female with a PMH of HTN, HLD, Alzheimer's Dementia , MVP and GERD, presents to our ED following a witnessed syncopal episode. History obtained from patient's daughter @ bedside. States patient was in the shower sitting on a shower stool when she suddenly fell forward, notes patient lost color and her eyes rolled back in her head. Patient's daughter was in the shower with the patient and was able to catch the patient before she hit the shower floor. Daughter moved patient to the toilet and patient briefly opened her eyes when she sat on the toilet seat and then closed her eyes again. Patient's daughter states she was able to arouse patient and patient ambulated to the bedroom at which time the patient handed her daughter a bowel movement - normal color and consistency. Patient remained laying in bed with her eyes closed until EMS arrived when she opened her eyes and was able to ambulate from the bed to the stretcher but remained non-verbal. Patient came back to baseline (A&O x2) in ED and does not recall the episode. Daughter notes previous episode in January [address] at [address] was negative. Patient had a follow-up MRI last week which showed "vascular burning." Notes patient has a h/o of poor fluid PO intake and eats a lot of sugar. Recently started on Neurotin last week, however discontinued Neurontin after 4 days 2/2 to hallucinations. NKDA PMD: Dr. Pedro Duong As per EMR, patient last evaluated in our ED in 01/[address] for [address]. Head CT negative. Patient discharged with provisional diagnosis of vasovagal syncope. Urine Cx later grew Strep Bovis, patient prescribed three day course of Levaquin. Past History - Past Medical History Allergies/Adverse Reactions: Allergies Allergy/AdvReac Type Severity Reaction Status Date / Time No Known Allergies Allergy Verified 04/29/14 15:26 Home Medications: Ambulatory Orders Cholecalciferol (Vitamin D3) [Vitamin D3] 2,000 unit PO DAILY 11/18/18 Omeprazole 40 mg PO DAILY 12/18/18 Amlodipine Besylate [Norvasc -] 5 mg PO DAILY tablet 01/16/19 Atorvastatin Ca [Lipitor] 10 mg PO HS tablet 01/16/19 Donepezil HCl [Aricept -] 10 mg PO DAILY tablet 01/16/19 Ezetimibe [Zetia -] 10 mg PO DAILY tablet 01/16/19 Sertraline HCl [Zoloft -] 150 mg PO DAILY tablet 01/16/19 COPD: No CHF: No Dementia: Yes (Alzheimer's disease) Diabetes: No HTN: Yes Hypercholesterolemia: Yes Psychiatric Problems: Yes (DEMENTIA DEPRESION) - Surgical History Abdominal Surgery: No Cardiac Surgery: No GI Surgery: No Neurologic Surgery: No Orthopedic Surgery: Yes (BUNION) - Suicide/Smoking/Psychosocial Hx Smoking History: Former smoker Have you smoked in the past 12 months: No If you are a former smoker, when did you quit?: 30 YEARS Information on smoking cessation initiated: No Hx Alcohol Use: No Drug/Substance Use Hx: No Review of Systems - Review of Systems Constitutional: No: Chills, Fever HEENTM: No: Blurred Vision, Double Vision Respiratory: No: Cough, Shortness of Breath, Stridor, Wheezing Cardiac (ROS): No: Chest Pain, Lightheadedness, Palpitations, Syncope ABD/GI: No: Constipated, Diarrhea, Nausea, Vomiting : Yes: Flank Pain. No: Burning, Dysuria *Physical Exam - Vital Signs Last Vital Signs Temp Pulse Resp BP Pulse Ox 98 F 59 L 20 119/62 100 02/09/19 12:38 02/09/19 12:38 02/09/19 12:38 02/09/19 12:38 02/09/19 12:38 - Physical Exam General Appearance: Yes: Nourished, Appropriately Dressed, Obese HEENT: positive: Normal Voice, Hearing Decreased (L sided hearing loss) Neck: positive: Trachea midline, Supple Respiratory/Chest: positive: Lungs Clear, Normal Breath Sounds Cardiovascular: positive: S1, S2. negative: Edema, JVD, Murmur Vascular Pulses: Femoral (R): 2+, Femoral (L): 2+ Gastrointestinal/Abdominal: positive: Normal Bowel Sounds, Soft Musculoskeletal: positive: CVA Tenderness (L). 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 negative: Facial Droop Moderate Sedation - Procedure Monitoring Vital Signs: Procedure Monitoring Vital Signs Temperature 98 F 02/09/19 12:38 Pulse Rate 59 L 02/09/19 12:38 Respiratory Rate 20 02/09/19 12:38 Blood Pressure 119/62 02/09/19 12:38 O2 Sat by Pulse Oximetry (%) 100 02/09/19 12:38 Heart Score/ECG Review - ECG Impressions Comment:: 02/09/19 14:04 HR 56 with 1st degree AV block, TWI in V3-V4 c/w previous EKG dated 01/15/19 ED Treatment Course - LABORATORY CBC & Chemistry Diagram: 02/09/19 13:51 02/09/19 13:51 Medical Decision Making - Medical Decision Making 02/09/19 13:53 73 year old female with syncope. H/o syncopal episode w/negative CT. Recent outpatient MRI with ? vascular ischemia. VS unremarkable. NIHSS 0. Frontal diagnosis: syncope 2/2 to ischemia including cardiac, neurologic vs. infectious including UTI. Also consider vasovagal. Will obtain Head CT, basic labs, EKG, Troponin x1, EKG shows no acute ischemia as documented in EKG section of EMR. 02/09/19 13:59 Orthostatic VS negative 02/09/19 14:52 CBC shows WBC 14.0 possibly reactive Troponin (-) x1 CMP unremarkable UA pending Patient @ CT 02/09/19 15:[address] negative for acute ischemia 02/09/19 15:37 Case d/w Dr. Duong - states patient had MRI with hippocampal changes c/w dementia as well as areas of ischemia UA shows 1+ blood, no WBC, (-) leukocyte esterase, (-) nitrite negative Will admit for further evaluation including cardiac evaluation. Case s/w Dr. Oreilly. Will admit to [facility] for further evaluation. Clinical Impression: Vasovagal syncope (diagnosis of exclusion) *DC/Admit/Observation/Transfer Diagnosis at time of Disposition: Syncope - Discharge Dispostion Condition at time of disposition: Fair Decision to Admit order: Yes - Referrals - Patient Instructions - Post Discharge Activity
[2019-02-09 13:58] LABS: BASO % 1.2 % (0-2.0); EOS % 0.6 % (0-4.5); HEMATOCRIT 37.7 % (32.4-45.2); HEMOGLOBIN 12.6 GM/dL (10.7-15.3); LYMPH % 14.6 % (8-40); MCHC 33.5 g/dl (32.0-36.0); MEAN CELL VOLUME 80.5 fl (80-96); MEAN PLT VOLUME 6.9 fl (7.5-11.1); MONO % 5.9 % (3.8-10.2); NEUT % 77.7 % (42.8-82.8); PLATELET COUNT 341 K/MM3 (134-434); RBC 4.68 M/mm3 (3.60-5.2)
[2019-02-09 14:35] LABS: ALBUMIN 3.6 g/dl (3.4-5.0); ALK PHOS 77 U/L (45-117); ANION GAP 9 MMOL/L (8-16); BILIRUBIN,TOTAL 0.2 mg/dL (0.2-1); BLOOD UREA NITROGEN 17 mg/dL (7-18); CALCIUM 8.9 mg/dL (8.5-10.1); CHLORIDE 108 mmol/L (98-107); CO2 23 mmol/L (21-32); CREATININE 1.1 mg/dL (0.55-1.3); GLUCOSE,RANDOM 89 mg/dL (74-106); SGOT/AST 14 U/L (15-37); SGPT/ALT 16 U/L (13-61); SODIUM 139 mmol/L (136-145); TOT PROT 6.9 g/dl (6.4-8.2)
[2019-02-09 16:37] LABS: URINE APPEARANCE Clear; URINE BILIRUBIN Negative (<2.0 mg/dL); URINE COLOR Yellow; URINE GLUCOSE (UA) Negative (NEGATIVE); URINE KETONE Negative (NEGATIVE); URINE LEUK ESTERASE Negative (NEGATIVE); URINE NITRITE Negative (NEGATIVE); URINE PROTEIN Negative (NEGATIVE); URINE UROBILINOGEN 0.2 mg/dL (0.2-1.0)
[2019-02-09 17:50] LABS: EPI CELLS 1+ /HPF (FEW); URINE BACTERIA 2+ /hpf (NONE SEEN); URINE MUCUS 2+
[2019-02-09] MEDS ORDERED: LORazepam 2 MG/ML SDV VIAL ONE (20:50)
--- NOTE | 2019-02-09 21:14 | PDOC ---
NIH Stroke Scale - Initial Evaluation Level of consciousness: Alert Ask patient the month and their age: Answers both correctly Ask patient to open & close eyes; make fist and let go: Obeys both correctly Best gaze (horizontal eye movement): Normal Visual field testing: No visual field loss Facial paresis (Show teeth/raise eyebrows/close eyes tight): Normal symmetrical movement Motor Function: Left Arm: Normal Motor Function: Right Arm: Normal (extends arm 90 (or 45) degrees for 10 seconds without drift Motor Function: Left Leg: Normal (extends leg 30 degrees for 5 seconds without drift) Motor Function: Right Leg: Normal (extends leg 30 degrees for 5 seconds without drift) Limb Ataxia: No ataxia Sensory(Use pinprick test arms,legs,trunk,face/side to side): Normal Best language (Describe picture, name items, read sentences): No Aphasia Dysarthria (read several words): Normal articulation Extinction and Inattention: No abnormality - Total Score NIH Stroke Scale Score: 0
--- NOTE | 2019-02-09 21:36 | HP ---
Admitting History and Physical - Primary Care Physician PCP: Deysi Orelily - Admission History of Present Illness: 73 year old female with a PMH of HTN, HLD, Dementia and GERD, presents to our ED following a witnessed syncopal episode. History obtained from patient's daughter @ bedside. States patient was in the shower sitting on a shower stool when she suddenly fell forward, notes patient lost color and her eyes rolled back in her head. Patient's daughter was in the shower with the patient and was able to catch the patient before she hit the shower floor. Daughter moved patient to the toilet and patient briefly opened her eyes when she sat on the toilet seat and then closed her eyes again. Patient's daughter states she was able to arouse patient and patient ambulated to the bedroom at which time the patient handed her daughter a bowel movement - normal color and consistency. Patient remained laying in bed with her eyes closed until EMS arrived when she opened her eyes and was able to ambulate from the bed to the stretcher but remained non-verbal. Patient came back to baseline (A&O x2) in ED and does not recall the episode. Daughter notes previous episode in January 2019 at [address] was negative. Patient had a follow-up MRI last week which showed "vascular burning." Notes patient has a h/o of poor fluid PO intake and eats a lot of sugar. Recently started on Neurotin last week, however discontinued Neurontin after 4 days 2/2 to hallucinations. NKDA PMD: Dr. 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 Cardiovascular: Yes: HTN, Hyperlipdemia Gastrointestinal: Yes: GERD - Smoking History Smoking history: Former smoker Have you smoked in the past 12 months: No If you are a former smoker, when did you quit?: 30 YEARS - Alcohol/Substance Use Hx Alcohol Use: No Home Medications - Allergies Allergies/Adverse Reactions: Allergies Allergy/AdvReac Type Severity Reaction Status Date / Time No Known Allergies Allergy Verified 04/29/14 15:26 - Home Medications Home Medications: Ambulatory Orders Cholecalciferol (Vitamin D3) [Vitamin D3] 2,000 unit PO DAILY 11/18/18 Omeprazole 40 mg PO DAILY 11/18/18 Amlodipine Besylate [Norvasc -] 5 mg PO DAILY tablet 01/16/19 Atorvastatin Ca [Lipitor] 10 mg PO HS tablet 01/16/19 Donepezil HCl [Aricept -] 10 mg PO DAILY tablet 01/16/19 Ezetimibe [Zetia -] 10 mg PO DAILY tablet 01/16/19 Sertraline HCl [Zoloft -] 150 mg PO DAILY tablet 01/16/19 Physical Examination Vital Signs: Vital Signs Temperature 98.1 F 02/09/19 18:56 Pulse Rate 71 02/09/19 18:56 Respiratory Rate 16 02/09/19 18:56 Blood Pressure 136/65 02/09/19 18:56 O2 Sat by Pulse Oximetry (%) 96 02/09/19 18:56 Constitutional: Yes: Calm HENT: Yes: Atraumatic Neck: Yes: Supple Cardiovascular: Yes: Regular Rate and Rhythm Respiratory: Yes: CTA Bilaterally Gastrointestinal: Yes: Normal Bowel Sounds Extremities: Yes: WNL Neurological: Yes: Alert Labs: CBC, BMP 02/09/19 13:51 02/09/19 13:51 Imaging - Results X-ray: Report Reviewed Cat Scan: Report Reviewed Problem List - Problems (1) HTN (hypertension) Assessment/Plan: continue home meds monitor Code(s): I10 - ESSENTIAL (PRIMARY) HYPERTENSION Qualifiers: Hypertension type: essential hypertension Qualified Code(s): I10 - Essential (primary) hypertension (2) HLD (hyperlipidemia) Assessment/Plan: on meds Code(s): E78.5 - HYPERLIPIDEMIA, UNSPECIFIED Qualifiers: Hyperlipidemia type: pure hypercholesterolemia Qualified Code(s): E78.00 - Pure hypercholesterolemia, unspecified; E78.0 - Pure hypercholesterolemia (3) Dementia in Alzheimer's disease Assessment/Plan: on aricept Code(s): G30.9 - ALZHEIMER'S DISEASE, UNSPECIFIED; F02.80 - DEMENTIA IN OTH DISEASES CLASSD ELSWHR W/O BEHAVRL DISTURB (4) Syncope Assessment/Plan: will monitor on tele cardiology consult echo carotid doppler Code(s): R55 - SYNCOPE AND COLLAPSE Qualifiers: Syncope type: unspecified Qualified Code(s): R55 - Syncope and collapse Assessment/Plan Laboratory Tests 02/09/19 02/09/19 02/09/19 13:51 13:51 16:00 WBC 14.0 H RBC 4.68 Hgb 12.6 Hct 37.7 MCV 80.5 MCH 27.0 MCHC 33.5 RDW 15.0 Plt Count 341 MPV 6.9 L Absolute Neuts (auto) 10.9 H Neutrophils % 77.7 Lymphocytes % 14.6 Monocytes % 5.9 Eosinophils % 0.6 Basophils % 1.2 Nucleated RBC % 0 Sodium 139 Potassium 4.0 Chloride 108 H Carbon Dioxide 23 Anion Gap 9 BUN 17 Creatinine 1.1 Creat Clearance w eGFR 48.55 Random Glucose 89 Calcium 8.9 Total Bilirubin 0.2 AST 14 L ALT 16 Alkaline Phosphatase 77 Creatine Kinase 46 Troponin I < 0.02 Total Protein 6.9 Albumin 3.6 Urine Color Yellow Urine Appearance Clear Urine pH 8.0 Ur Specific [place] 1.015 Urine Protein Negative Urine Glucose (UA) Negative Urine Ketones Negative Urine Blood 1+ H Urine Nitrite Negative Urine Bilirubin Negative Urine Urobilinogen 0.2 Ur Leukocyte Esterase Negative Urine WBC (Auto) 0-3 Urine RBC (Auto) 0-3 Ur Epithelial Cells 1+ Urine Bacteria 2+ Urine Mucus 2+ Active Medications Generic Name Dose Route Start Last Admin Trade Name Tracy PRN Reason Stop Dose Admin Amlodipine Besylate 5 mg 02/10/19 10:00 02/10/19 10:15 Norvasc - PO 5 mg DAILY DOC Administration Atorvastatin Calcium 10 mg 02/09/19 22:00 02/09/19 22:20 Lipitor - PO 10 mg HS DOC Administration Donepezil HCl 10 mg 02/10/19 22:00 Aricept - PO HS DOC Ezetimibe 10 mg 02/10/19 10:00 02/10/19 11:15 Zetia - PO 10 mg DAILY DOC Administration Sodium Chloride 1,000 mls @ 50 mls/hr 02/10/19 17:45 02/10/19 18:16 Normal Saline - IV 02/11/19 13:44 50 mls/hr ONCE ONE Administration Sertraline HCl 150 mg 02/10/19 10:00 02/10/19 10:16 Zoloft - PO 150 mg DAILY DOC Administration
[2019-02-09] MEDS ORDERED: ATORVASTATIN CA 10 MG TABLET (FP) PO SCH (22:00)
[2019-02-09] MEDS ORDERED: ATORVASTATIN CA 10 MG TABLET (FP) ONE (22:12)
[2019-02-10 01:50] VITALS: BMI 26.4
[2019-02-10] MEDS ORDERED: PT OWN MED DRAWER 7, Y5N ONE ×3 (08:37→10:06)
[2019-02-10] MEDS ORDERED: SERTRALINE HCL 50 MG TABLET (FP) PO SCH (10:00)
[2019-02-10] MEDS ORDERED: amLODIPine BESYLATE 5 MG TABLET (FP) PO SCH (10:00)
[2019-02-10] MEDS ORDERED: EZETIMIBE 10 MG TABLET (FP) PO SCH (10:00)
--- NOTE | 2019-02-10 10:56 | CON.CARD ---
Consult Consult Specialty:: Cardiology Referred by:: Dr. Oreilly Reason for Consultation:: Cardiac evaluation - History of Present Illness Chief Complaint: Syncope History of Present Illness: Patient is a 73 year old female with underlying history of HTN, hypercholesterolemia and organic brain syndrome/dementia who presents after a witnessed syncopal episode. She was waiting to take a shower when she suddenly fell forward. Her daughter was by her side and managed to have her sit on the toilet bowl where she continued to be poorly responsive. Patient was moved to her bed and she would open her eyes briefly but then close her eyes and then remained non-verbal. EMS was called. Upon questioning, patient does not remember the event except for bits and pieces. She was admitted back in January to [facility] with syncope. Work up was unremarkable at that time. She denies chest pain, SOB or palpitations. She denies paroxysmal nocturnal dyspnea or orthopnea. She denies fever or chills. She denies nausea, vomiting, diarrhea or abdominal pain. She denies headache or lightheadedness. PMD: Dr. 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 Cardio/Vascular: Yes: HTN, Hyperlipdemia Gastrointestinal: Yes: GERD - Alcohol/Substance Use Hx Alcohol Use: Yes History of Substance Use: reports: None - Smoking History Smoking history: Former smoker Have you smoked in the past 12 months: No If you are a former smoker, when did you quit?: 30 YEARS Home Medications - Allergies Allergies/Adverse Reactions: Allergies Allergy/AdvReac Type Severity Reaction Status Date / Time No Known Allergies Allergy Verified 04/29/14 15:26 - Home Medications Home Medications: Ambulatory Orders Cholecalciferol (Vitamin D3) [Vitamin D3] 2,000 unit PO DAILY 11/18/18 Omeprazole 40 mg PO DAILY 11/18/18 Amlodipine Besylate [Norvasc -] 5 mg PO DAILY tablet 01/16/19 Atorvastatin Ca [Lipitor] 10 mg PO HS tablet 01/16/19 Donepezil HCl [Aricept -] 10 mg PO DAILY tablet 01/16/19 Ezetimibe [Zetia -] 10 mg PO DAILY tablet 01/16/19 Sertraline HCl [Zoloft -] 150 mg PO DAILY tablet 01/16/19 Family Disease History - Family Disease History Family Disease History: CA: Father (Lung CA), Mother (Breast CA) Review of Systems - Review of Systems Constitutional: denies: Chills, Fever Cardiovascular: denies: Chest Pain, Palpitations, Shortness of Breath Respiratory: denies: Cough, Hemoptysis, Orthopnea, SOB, SOB on Exertion Gastrointestinal: denies: Abdominal Pain, Constipation, Diarrhea, Melena, Nausea , Rectal Bleeding, Vomiting Genitourinary: denies: Dysuria, Hematuria Musculoskeletal: denies: Back Pain Neurological: reports: Syncope. denies: Dizziness, Headache, Seizure Vital Signs: Vital Signs Temperature 97.9 F 02/10/19 09:00 Pulse Rate 62 02/10/19 09:00 Respiratory Rate 20 02/10/19 09:00 Blood Pressure 147/79 02/10/19 09:00 O2 Sat by Pulse Oximetry (%) 96 02/10/19 01:39 Eyes: Yes: PERRL HENT: Yes: Atraumatic Neck: Yes: Supple Respiratory: Yes: CTA Bilaterally Gastrointestinal: Yes: Normal Bowel Sounds, Soft. No: Tenderness Cardiovascular: Yes: Regular Rate and Rhythm JVD: No PMI: Non-Displaced Heart Sounds: Yes: S1, S2 Murmur: No: Systolic Murmur, Diastolic Murmur Edema: No - Other Data Labs, Other Data: CBC, BMP 02/09/19 13:51 02/09/19 13:51 Troponin, BNP 02/09/19 13:51 Troponin I < 0.02 Sinus, ST-T abnormality, consider anterior ischemia Echo: Pending Imaging - Results Chest X-ray: Report Reviewed (Unremarkable) Cat Scan: Report Reviewed (Head CT unremarkable) Ultrasound: Report Reviewed (Carotid Doppler unremarkable) EKG: Report Reviewed Problem List - Problems (1) GERD (gastroesophageal reflux disease) Code(s): K21.9 - GASTRO-ESOPHAGEAL REFLUX DISEASE WITHOUT ESOPHAGITIS (2) HLD (hyperlipidemia) Code(s): E78.5 - HYPERLIPIDEMIA, UNSPECIFIED Qualifiers: Hyperlipidemia type: pure hypercholesterolemia Qualified Code(s): E78.00 - Pure hypercholesterolemia, unspecified; E78.0 - Pure hypercholesterolemia (3) HTN (hypertension) Code(s): I10 - ESSENTIAL (PRIMARY) HYPERTENSION Qualifiers: Hypertension type: essential hypertension Qualified Code(s): I10 - Essential (primary) hypertension (4) Syncope Code(s): R55 - SYNCOPE AND COLLAPSE Qualifiers: Syncope type: unspecified Qualified Code(s): R55 - Syncope and collapse (5) Dementia in Alzheimer's disease Code(s): G30.9 - ALZHEIMER'S DISEASE, UNSPECIFIED; F02.80 - DEMENTIA IN OTH DISEASES CLASSD ELSWHR W/O BEHAVRL DISTURB (6) Fall Code(s): W19.XXXA - UNSPECIFIED FALL, INITIAL ENCOUNTER Assessment/Plan 1. Syncope, etiology unclear, dehydration?, vaso-vagal? 2. HTN 3. Hypercholesterolemia 4. GERD 5. Organic brain syndrome/dementia PLAN: 1. Continue current medical therapy with caution and monitor BP 2. Check orthostasis 3. Fluid resuscitation 4. Echocardiography to assess LV/RV and valvular function 5. Telemetry monitoring. Consider outpatient extended monitoring if needed. Possible upright tilt table testing may be considered. Further evaluation for abnormal ECG may be done as outpatient. Further plans are to follow Francisco Javier Alvarez MD
--- NOTE | 2019-02-10 12:27 | ECHO ---
Name: LALIT ALBERTO Exam:Adult Echocardiogram Study Date: 02/10/2019 09:17 AM Age: 73 yrs Reason For Study: syncope Height: 66 in Weight: 164 lb BSA: 1.8 m2 MMode/2D Measurements & Calculations IVSd: 0.99 cm Ao root diam: 3.3 cm LVIDd: 4.7 cm LA dimension: 3.6 cm LVIDs: 2.4 cm ACS: 1.8 cm LVPWd: 0.84 cm IVSs: 1.3 cm LVPWs: 1.2 cm EDV(Teich): 100.2 ml ESV(Teich): 20.2 ml Doppler Measurements & Calculations MV E max ever: 63.2 cm/sec MR max ever: 461.0 cm/sec MV A max ever: 70.3 cm/sec MR max P.0 mmHg MV E/A: 0.90 TR max ever: 244.1 cm/sec PI end-d ever: 70.6 cm/sec TR max P.9 mmHg Med Peak E' Ever: 5.2 cm/sec Med E/e': 12.2 Lat Peak E' Ever: 6.1 cm/sec Lat E/e': 10.3 Procedure A two-dimensional transthoracic echocardiogram with color flow and Doppler was performed. The patient was in normal sinus rhythm during the exam. Left Ventricle The left ventricle is normal in size. Left ventricular systolic function is normal. Ejection Fraction = 65%. E/A reversal consistent with but not diagnostic of poor LV compliance. Right Ventricle The right ventricle is grossly normal size. The right ventricular systolic function is grossly normal . Atria The left atrial size is normal. Right atrial size is normal. Mitral Valve The mitral valve is normal. There is no mitral regurgitation noted. Tricuspid Valve The tricuspid valve is normal. There is mild tricuspid regurgitation. Right ventricular systolic pres sure is elevated at 30-40mmHg. Aortic Valve There is mild aortic sclerosis.;. The aortic valve is trileaflet. The aortic valve opens well. No aor tic regurgitation is present. Pulmonic Valve The pulmonic valve is not well seen, but is grossly normal. Mild pulmonic valvular regurgitation. Great Vessels The aortic root is normal size. Pericardium/Pleura There is no pericardial effusion. Interpretation Summary Left ventricular systolic function is normal. E/A reversal consistent with but not diagnostic of poor LV compliance The right ventricular systolic function is grossly normal. There is mild tricuspid regurgitation. There is mild aortic sclerosis.; The aortic valve opens well. Mild pulmonic valvular regurgitation. MD Shubham Kathleen 02/10/2019 12:27 PM
--- NOTE | 2019-02-10 13:36 | EKG ---
Test Reason : Blood Pressure : / mmHG Vent. Rate : 056 BPM Atrial Rate : 056 BPM P-R Int : 218 ms QRS Dur : 090 ms QT Int : 454 ms P-R-T Axes : 033 -36 -41 degrees QTc Int : 438 ms SINUS BRADYCARDIA WITH 1ST DEGREE A-V BLOCK LEFT AXIS DEVIATION ABNORMAL ECG WHEN COMPARED WITH ECG OF 15-JAN-2019 01:53, T WAVE INVERSION NOW EVIDENT IN ANTERIOR LEADS QT HAS SHORTENED Confirmed by MD ARELY, YAYO ([id number]) on 02/10/2019 1:35:21 PM Referred By: Confirmed By:YAYO MCGEE MD
[2019-02-10] MEDS ORDERED: SODIUM CHLORIDE 1,000 ML IV ONE (17:45)
--- NOTE | 2019-02-10 19:06 | PN ---
Progress Note, Physician - Current Medication List Current Medications: Active Medications Amlodipine Besylate (Norvasc -) 5 mg PO DAILY [facility] Last Admin: 02/10/19 10:15 Dose: 5 mg Atorvastatin Calcium (Lipitor -) 10 mg PO [facility] Last Admin: 02/09/19 22:20 Dose: 10 mg Donepezil HCl (Aricept -) 10 mg PO [facility] Ezetimibe (Zetia -) 10 mg PO DAILY [facility] Last Admin: 02/10/19 11:15 Dose: 10 mg Sodium Chloride (Normal Saline -) 1,000 mls @ 50 mls/hr IV ONCE ONE Stop: 02/11/19 13:44 Last Admin: 02/10/19 18:16 Dose: 50 mls/hr Sertraline HCl (Zoloft -) 150 mg PO DAILY [facility] Last Admin: 02/10/19 10:16 Dose: 150 mg - Objective Vital Signs: Vital Signs Temperature 97.7 F 02/10/19 13:00 Pulse Rate 71 02/10/19 13:00 Respiratory Rate 20 02/10/19 13:00 Blood Pressure 120/72 02/10/19 13:00 O2 Sat by Pulse Oximetry (%) 97 02/10/19 10:00 Labs: CBC, BMP 02/09/19 13:51 02/09/19 13:51 Problem List - Problems (1) HTN (hypertension) Code(s): I10 - ESSENTIAL (PRIMARY) HYPERTENSION Qualifiers: Hypertension type: essential hypertension Qualified Code(s): I10 - Essential (primary) hypertension (2) HLD (hyperlipidemia) Code(s): E78.5 - HYPERLIPIDEMIA, UNSPECIFIED Qualifiers: Hyperlipidemia type: pure hypercholesterolemia Qualified Code(s): E78.00 - Pure hypercholesterolemia, unspecified; E78.0 - Pure hypercholesterolemia (3) Dementia in Alzheimer's disease Code(s): G30.9 - ALZHEIMER'S DISEASE, UNSPECIFIED; F02.80 - DEMENTIA IN OTH DISEASES CLASSD ELSWHR W/O BEHAVRL DISTURB (4) Syncope Code(s): R55 - SYNCOPE AND COLLAPSE Qualifiers: Syncope type: unspecified Qualified Code(s): R55 - Syncope and collapse
[2019-02-10] MEDS ORDERED: LORazepam 2 MG/ML SDV VIAL IVPUSH ONE (19:12)
[2019-02-10 19:24] VITALS: BP 124/67; PULSE 73; TEMP 97.2
--- NOTE | 2019-02-10 19:29 | DS ---
Physical Examination Vital Signs: Vital Signs Temperature 97.2 F L 02/10/19 18:00 Pulse Rate 73 02/10/19 18:00 Respiratory Rate 20 02/10/19 18:00 Blood Pressure 124/67 02/10/19 18:00 O2 Sat by Pulse Oximetry (%) 97 02/10/19 10:00 Constitutional: Yes: Anxious HENT: Yes: Atraumatic Neck: Yes: Supple Cardiovascular: Yes: Regular Rate and Rhythm Respiratory: Yes: CTA Bilaterally Gastrointestinal: Yes: Normal Bowel Sounds Extremities: Yes: WNL Edema: No Peripheral Pulses WNL: Yes Neurological: Yes: Alert, Oriented Labs: CBC, BMP 02/09/19 13:51 02/09/19 13:51 Discharge Summary Reason For Visit: SYNCOPE Current Active Problems GERD (gastroesophageal reflux disease) (Acute) HLD (hyperlipidemia) (Acute) HTN (hypertension) (Acute) Syncope (Acute) Condition: Fair - Instructions - Home Medications Comprehensive Discharge Medication List: Ambulatory Orders Cholecalciferol (Vitamin D3) [Vitamin D3] 2,000 unit PO DAILY 11/18/18 Omeprazole 40 mg PO DAILY 11/18/18 Amlodipine Besylate [Norvasc -] 5 mg PO DAILY tablet 01/16/19 Atorvastatin Ca [Lipitor] 10 mg PO HS tablet 01/16/19 Donepezil HCl [Aricept -] 10 mg PO DAILY tablet 01/16/19 Ezetimibe [Zetia -] 10 mg PO DAILY tablet 01/16/19 Sertraline HCl [Zoloft -] 150 mg PO DAILY tablet 01/16/19 patients wants to go home spoke to daughter who is at bedside she will take her home cleared by cardiology
[2019-02-10] MEDS ORDERED: DONEPEZIL HCL 10 MG TABLET (FP) PO SCH (22:00)
== END 2019-02-10 21:51 | disposition home or self-care (01) ==
LOC: JER 12:36 → JERBED 17:24 → J4S 23:46
PROVIDERS: ADMIT Internal Medicine; ATTEND Internal Medicine
PROC: 3E033NZ Introduction of Analgesics, Hypnotics, Sedatives into Peripheral Vein, Percutaneous Approach (ICD-10-PCS; principal; 2019-02-09)
PROC: 3E0337Z Introduction of Electrolytic and Water Balance Substance into Peripheral Vein, Percutaneous Approach (ICD-10-PCS; 2019-02-09)
DX: R55 Syncope and collapse (principal); I10 Essential (primary) hypertension; E78.5 Hyperlipidemia, unspecified; G30.9 Alzheimer's disease, unspecified; F02.80 Dementia in other diseases classified elsewhere, unspecified severity, without behavioral disturbance, psychotic disturbance, mood disturbance, and anxiety; I34.1 Nonrheumatic mitral (valve) prolapse; K21.9 Gastro-esophageal reflux disease without esophagitis; Z87.891 Personal history of nicotine dependence
CPT/HCPCS: 36415; 70450-TC; 71045-TC-FY; 80053; 81003; 81015; 82550; 84484; 85025; 87086; 93005; 93010; 93306-TC; 93880-TC; 96361; 96374; 96376; 99285-25; G0378; J7030

== ENCOUNTER 2019-08-02 23:02 | Emergency (ER) | payer OTHER, BC ==
--- NOTE | 2019-08-02 23:33 | PDOC ---
Attending Attestation - Resident Resident Name: AugustoMatthew - ED Attending Attestation I have performed the following: I have examined & evaluated the patient, The case was reviewed & discussed with the resident, I agree w/resident's findings & plan, Exceptions are as noted - HPI HPI: 08/03/19 01:29 73-year-old female BIBA after a fall,she was found on her back on the kitchen floor by her daughter - Physicial Exam PE: 08/03/19 01:32 wnwd 73 yo female head no scalp lacerations eyes paula eomi neck no cervical midline tenderness lungs cta b/l abd nontender extremites no deformities skin no lacerations neuro alert,conversant but poor historian - Medical Decision Making 08/03/19 01:35 pt isnot on any anticogulation ct scan c spine no acute fracture ct scan head: no skull fracture,no acute intracranial bleed negative troponin 08/03/19 01:37 PMH HTN,dementia,gerd 08/03/19 01:47 pt is able to ambulate without any hip or leg discomfort pt lives with her family they did not want to stay for a second cardiac enzyme and left AMA 08/03/19 02:31
[2019-08-02] MEDS ORDERED: SODIUM CHLORIDE 500 ML IV STA (23:35)
[2019-08-02] MEDS ORDERED: ACETAMINOPHEN 1000 MG/100 ML VIAL (NON FORMULARY) IVPB ONE (23:35)
--- NOTE | 2019-08-03 00:05 | PDOC ---
History of Present Illness - General Stated Complaint: FALL Time Seen by Provider: 08/02/19 23:32 History Source: Patient Exam Limitations: No Limitations - History of Present Illness Initial Comments: 08/03/19 00:04 73 yo F with a hx of dementia, HTN, and HLD presents to the emergency department s/p fall with LOC event. Past History - Past Medical History Allergies/Adverse Reactions: Allergies Allergy/AdvReac Type Severity Reaction Status Date / Time No Known Allergies Allergy Verified 04/29/14 15:26 Home Medications: Ambulatory Orders Cholecalciferol (Vitamin D3) [Vitamin D3] 2,000 unit PO DAILY 11/18/18 Omeprazole 40 mg PO DAILY 11/18/18 Amlodipine Besylate [Norvasc -] 5 mg PO DAILY tablet 01/16/19 Atorvastatin Ca [Lipitor] 10 mg PO HS tablet 01/16/19 Donepezil HCl [Aricept -] 10 mg PO DAILY tablet 01/16/19 Ezetimibe [Zetia -] 10 mg PO DAILY tablet 01/16/19 Sertraline HCl [Zoloft -] 150 mg PO DAILY tablet 01/16/19 COPD: No CHF: No Dementia: Yes (Alzheimer's disease) Diabetes: No GI Disorders: Yes (gerd) HTN: Yes Hypercholesterolemia: Yes Psychiatric Problems: Yes (DEMENTIA DEPRESION) - Surgical History Abdominal Surgery: No Cardiac Surgery: No GI Surgery: No Neurologic Surgery: No Orthopedic Surgery: Yes (BUNION) - Suicide/Smoking/Psychosocial Hx Smoking History: Former smoker Have you smoked in the past 12 months: No If you are a former smoker, when did you quit?: 30 YEARS Hx Alcohol Use: No Drug/Substance Use Hx: No Substance Use Type: None Hx Substance Use Treatment: No ED Treatment Course - RADIOLOGY Radiology Studies Ordered: Category Date Time Status CERVICAL SPINE CT W/O CONTR [CT] Stat CT Scan 08/03/19 00:[address] WITHOUT CONTRAST [CT] Stat CT Scan 08/03/19 00:03 Ordered CHEST PA & LAT [RAD] Stat Radiology 08/03/19 00:03 Ordered HIP & PELVIS-LEFT [RAD] Stat Radiology 08/03/19 00:03 Ordered HIP & PELVIS-RIGHT [RAD] Stat Radiology 08/03/19 00:03 Ordered
[2019-08-03 00:23] VITALS: BP 138/77; PULSE 61; TEMP 97.7; BMI 26.6
[2019-08-03] MEDS ORDERED: ACETAMINOPHEN INJECTION 100 ML IVPB ONE (00:25)
[2019-08-03 00:40] LABS: BASO % 0.6 % (0-2.0); EOS % 0.4 % (0-4.5); HEMATOCRIT 37.5 % (32.4-45.2); HEMOGLOBIN 12.2 GM/dL (10.7-15.3); LYMPH % 14.2 % (8-40); MCH 25.9 pg (25.7-33.7); MCHC 32.5 g/dl (32.0-36.0); MEAN CELL VOLUME 79.8 fl (80-96); MEAN PLT VOLUME 7.4 fl (7.5-11.1); MONO % 7.2 % (3.8-10.2); NEUT % 77.6 % (42.8-82.8); PLATELET COUNT 389 K/MM3 (134-434); RDW 15.1 % (11.6-15.6); WHITE BLOOD COUNT 14.5 K/mm3 (4.0-10.0)
[2019-08-03 00:54] LABS: INR 1.02 (0.83-1.09)
[2019-08-03 01:09] LABS: ALBUMIN 3.7 g/dl (3.4-5.0); BILIRUBIN,TOTAL 0.3 mg/dL (0.2-1); BLOOD UREA NITROGEN 18.8 mg/dL (7-18); CALCIUM 9.6 mg/dL (8.5-10.1); CREATININE 1.1 mg/dL (0.55-1.3); POTASSIUM 3.8 mmol/L (3.5-5.1)
--- NOTE | 2019-08-03 14:50 | EKG ---
Test Reason : Blood Pressure : / mmHG Vent. Rate : 059 BPM Atrial Rate : 059 BPM P-R Int : 206 ms QRS Dur : 104 ms QT Int : 480 ms P-R-T Axes : 045 -23 021 degrees QTc Int : 475 ms POOR DATA QUALITY, INTERPRETATION MAY BE ADVERSELY AFFECTED SINUS BRADYCARDIA ABNORMAL ECG WHEN COMPARED WITH ECG OF 09-FEB-2019 12:53, NO SIGNIFICANT CHANGE WAS FOUND Confirmed by JANNA CARR, CHARY ([id number]) on 08/03/2019 2:50:11 PM Referred By: Confirmed By:CHARY SALDIVAR MD
== END 2019-08-03 02:55 | disposition left against medical advice (07) ==
LOC: JER 23:02
PROC: 3E0337Z Introduction of Electrolytic and Water Balance Substance into Peripheral Vein, Percutaneous Approach (ICD-10-PCS; principal; 2019-08-02)
PROC: 3E033NZ Introduction of Analgesics, Hypnotics, Sedatives into Peripheral Vein, Percutaneous Approach (ICD-10-PCS; 2019-08-02)
DX: S06.9X0A Unspecified intracranial injury without loss of consciousness, initial encounter (principal); R55 Syncope and collapse; W18.39XA Other fall on same level, initial encounter; Y93.89 Activity, other specified; Y92.030 Kitchen in apartment as the place of occurrence of the external cause; Y99.8 Other external cause status; I10 Essential (primary) hypertension; E78.00 Pure hypercholesterolemia, unspecified; G30.8 Other Alzheimer's disease; F02.80 Dementia in other diseases classified elsewhere, unspecified severity, without behavioral disturbance, psychotic disturbance, mood disturbance, and anxiety; K21.9 Gastro-esophageal reflux disease without esophagitis
CPT/HCPCS: 36415; 70450-TC; 71046-TC-FY; 72125-TC; 73523-TC-FY; 80053; 82550; 84484; 85025; 85610; 86850; 86900; 86901; 93005; 93010; 96361; 96374; 99282-25; J0131

== ENCOUNTER 2019-11-27 16:02 | Emergency (ER) | payer OTHER, BC ==
[2019-11-27 16:19] VITALS: TEMP 98.1; BMI 25.0
--- NOTE | 2019-11-27 16:47 | PDOC ---
History of Present Illness - General Chief Complaint: Syncope/Near Syncope Stated Complaint: SYNCOPE Time Seen by Provider: 11/27/19 16:15 History Source: Family (daughter / proxy) Exam Limitations: Dementia - History of Present Illness Initial Comments: 73F PMH HTN HLD Alzheimers BIBEMS after witnessed syncopal episode. Pt's daughter (proxy) was assisting pt to the bathroom. Pt syncopized while straining for BM subsequent vomiting and watery stool. No shaking of arms/legs. Pt was held upright by daughter, no head strike. Episode lasted about 1 minute. EMS found pt to be hypotensive, received 1L NS en route. Has had prior syncopal episodes with negative work ups. Pt is poor historian and poorly able to participate in exam; has no current complaints. Baseline poor appetite and fluid intake. Denies numbness, tingling, weakness. Ambulates mostly unassisted at home. Proxy is resistant to idea of observation or admission stating pt always leaves hospital in worse mental condition than she comes in with and workup is always negative. NKDA Past History - Past Medical History Allergies/Adverse Reactions: Allergies Allergy/AdvReac Type Severity Reaction Status Date / Time No Known Allergies Allergy Verified 11/27/19 16:15 Home Medications: Ambulatory Orders Cholecalciferol (Vitamin D3) [Vitamin D3] 2,000 unit PO DAILY 11/18/18 Amlodipine Besylate [Norvasc -] 5 mg PO DAILY tablet 01/16/19 Atorvastatin Ca [Lipitor] 10 mg PO HS tablet 01/16/19 Donepezil HCl [Aricept -] 10 mg PO DAILY tablet 01/16/19 Ezetimibe [Zetia -] 10 mg PO DAILY tablet 01/16/19 Sertraline HCl [Zoloft -] 150 mg PO DAILY tablet 01/16/19 COPD: No CHF: No Dementia: Yes (Alzheimer's disease) Diabetes: No GI Disorders: Yes (gerd) HTN: Yes Hypercholesterolemia: Yes Psychiatric Problems: Yes (DEMENTIA DEPRESION) - Surgical History Abdominal Surgery: No Cardiac Surgery: No GI Surgery: No Neurologic Surgery: No Orthopedic Surgery: Yes (BUNION) - Psycho Social/Smoking Cessation Hx Smoking History: Former smoker Have you smoked in the past 12 months: No If you are a former smoker, when did you quit?: 30 YEARS AGO Information on smoking cessation initiated: No Hx Alcohol Use: No Drug/Substance Use Hx: No Substance Use Type: None Hx Substance Use Treatment: No Review of Systems - Review of Systems Able to Perform ROS?: No Comments:: 11/28/19 16:04 unable to obtain ROS 2/2 dementia *Physical Exam - Vital Signs Last Vital Signs Temp Pulse Resp BP Pulse Ox 98.1 F 62 20 108/68 95 11/27/19 16:16 11/27/19 16:16 11/27/19 16:16 11/27/19 16:16 11/27/19 16:16 - Physical Exam GEN: NAD, comfortable. Awake, alert, disoriented. HEENT: NC/AT. Limited participation in neurologic evaluation: PERRLA. No facial asymmetry. Supple neck w/ FROM. CV: S1/S2, RRR, no m/r/g LUNG: CTAB, no wheezes, crackles, rales, rhonchi. GI: soft, ndnt, +BS, no guarding, no rebound. EXTREMITIES: No LE edema. No obvious deformities of all extremities. SKIN: warm, dry, normal turgor PSYCH: cooperative, follows basic commands. NEURO: Moving all extremities well. ED Treatment Course - LABORATORY CBC & Chemistry Diagram: 11/27/19 17:08 11/27/19 17:08 - RADIOLOGY Radiology Studies Ordered: Category Date Time Status CHEST X-RAY PORTABLE* [RAD] Stat Radiology 11/27/19 16:36 Ordered Medical Decision Making - Medical Decision Making 11/27/19 16:41 73F BIBEMS after witnessed syncopal episode on the toilet w/ vomiting and loose stool. EMS found pt to be hypotensive provided 1L NS en route. Pt unable to fully participate in H&P 2/2 dementia. Proxy amenable to ED initial work up. DDx - Likely vasovagal syncope vs dehydration; eval for arrhythmia, lytes abnormality, anemia - CBC, CMP, Cardiac, Mg, Phos - EKG - CXR - CT Head EKG 11/27/19 HR 58 ND 202 QRS 102 QTc 408 Sinus; poor baseline. 11/27/19 16:59 From chart review, pt had carotid US in 01/2019 which found patent carotids w/o high grade stenosis. 11/27/19 18:19 BP 140s/90s s/p 1L NS by EMS 11/27/19 19:26 labs reviewed; pt dry CXR reviewed; appears there were two CXRs one standing and one portable - pt only received portable Given pt's past hx of vasovagal and reliable proxy (nurse) ED team comfortable with DC and PCP f/u DC as above. Discharge - Discharge Information Problems reviewed: Yes Clinical Impression/Diagnosis: Syncope Qualifiers: Syncope type: vasovagal syncope Qualified Code(s): R55 - Syncope and collapse Condition: Stable Disposition: HOME - Admission No - Follow up/Referral - Patient Discharge Instructions Patient Printed Discharge Instructions: DI for Syncope in Adults (Fainting) Additional Instructions: Drink plenty of fluids and eat regularly. Follow up with your primary care doctor in the next 3-5 days. Immediately return to the Emergency Department if you experience: - recurrent symptoms - seizures, loss of function or sensation of any limb - change in personality or behavior - ANYTHING THAT CONCERNS YOU - Post Discharge Activity
[2019-11-27 17:13] LABS: EOS % 0.8 % (0-4.5); HEMATOCRIT 37.5 % (32.4-45.2); LYMPH % 14.7 % (8-40); MCH 25.9 pg (25.7-33.7); MEAN PLT VOLUME 7.2 fl (7.5-11.1); MONO % 6.2 % (3.8-10.2); NEUT % 77.3 % (42.8-82.8); PLATELET COUNT 377 K/MM3 (134-434); RBC 4.63 M/mm3 (3.60-5.2); RDW 14.3 % (11.6-15.6); WHITE BLOOD COUNT 13.3 K/mm3 (4.0-10.0)
[2019-11-27 17:41] LABS: ALBUMIN 3.3 g/dl (3.4-5.0); ALK PHOS 72 U/L (45-117); ANION GAP 8 MMOL/L (8-16); BILIRUBIN,TOTAL 0.1 mg/dL (0.2-1); BLOOD UREA NITROGEN 21.2 mg/dL (7-18); CALCIUM 8.9 mg/dL (8.5-10.1); CHLORIDE 110 mmol/L (98-107); CO2 22 mmol/L (21-32); CREATININE 1.1 mg/dL (0.55-1.3); GLUCOSE,RANDOM 147 mg/dL (74-106); POTASSIUM 3.6 mmol/L (3.5-5.1); SGOT/AST 11 U/L (15-37); SGPT/ALT 14 U/L (13-61); SODIUM 140 mmol/L (136-145); TOT PROT 6.7 g/dl (6.4-8.2)
--- NOTE | 2019-11-27 18:09 | PDOC ---
Documentation entered by Brooke Feliciano SCRIBE, acting as scribe for Monica Ho MD. Monica Ho MD: This documentation has been prepared by the Jodie sue Adrianna, SCRIBE, under my direction and personally reviewed by me in its entirety. I confirm that the documentation accurately reflects all work, treatment, procedures, and medical decision making performed by me. Attending Attestation - Resident Resident Name: Anderson Buck - ED Attending Attestation I have performed the following: I have examined & evaluated the patient, The case was reviewed & discussed with the resident, I agree w/resident's findings & plan, Exceptions are as noted - HPI HPI: The patient is a 73 year old female, with a significant PMH of HTN, HLD, Alzhiemers, and GERD, who presents to the ED BIBEMS for evaluation s/p syncopal episode. Patients daughter assists in providing history. Daughter notes that the patient syncopized earlier today while straining for a bowel movement, following an episode of vomiting and loose, watery stool. Daughter held the patient upright during the episode, and denies any head contusion. She notes the episode lasted for ~1 minute, and daughter denies any shaking of the arms or legs. Upon EMS arrival, patient was found to be hypotensive and was given one liter of saline. Patient does not have any acute complaints while in the ED , and has a poor appetite and fluid intake at baseline. Allergies: NKA, NKDA Surgical History: Bunion removal Social History: Former smoker (quit 30 years ago). Denies EtOH or illicit drug us PCP: Dr. Pedro Duong - Physicial Exam PE: 11/27/19 17:41 GENERAL: The patient is in no acute distress, resting comfortably. moving all extremities. HEENT: No external signs of trauma, Ears normal, nares patent, oropharynx clear without exudates. Moist mucous membranes. NECK: Normal range of motion, supple, no midline tenderness LUNGS: Breath sounds equal, clear to auscultation bilaterally. No wheezes, and no crackles. HEART:Regular rate and rhythm, normal S1 and S2 without murmur, rub or gallop. ABDOMEN: Soft, nontender, normoactive bowel sounds. EXTREMITIES: Normal range of motion, no edema, no deformities noted. NEUROLOGICAL: Cranial nerves II through XII grossly intact. Normal speech. No focal neurological deficits. SKIN: Warm, Dry, normal turgor, no rashes or lesions noted. - Medical Decision Making 11/27/19 17:43 73-year-old female with a history of hypertension, end-stage dementia, recurrent episodes of micturition syncope who presents to the emergency department with her daughter/urgent care nurse practitioner secondary to syncopal episode Pt has had 3 prior episodes (2 admissions for the same) Pt was having a bowel movement and was noted to syncopize Patient was caught by daughter. Typically she would not have brought her to the emergency department however she remained "out of it "for a longer period of time. She also had 3 episodes of emesis Upon arrival of EMS, patient began to appear better Although the daughter did not really want to come to the hospital, she ended up bringing her because patient's blood pressure was a little low. Likely micturition syncope Cannot rule out ACS, arrhythmia, unlikely seizure, Will do: Lab EKG CT head Reassess EKG: sinus bradycardia, rate of 58 bpm, left axis deviation, first-degree AV block with a [place] interval of 202 MS, QRS 102 MS, QTC 4 8 MS, no ST elevation or depression, T waves are overall flattened 11/27/19 17:53 Laboratory Tests 11/27/19 11/27/19 17:08 17:08 WBC 13.3 H Hgb 12.0 Hct 37.5 Plt Count 377 BUN 21.2 H Creatinine 1.1 Creatine Kinase 30 Troponin I < 0.02 Pt improved Pt will be discharged to home Will follow up with PMD Return to the ER for any other concerns or complaints ED Treatment Course - LABORATORY CBC & Chemistry Diagram: 11/27/19 17:08 11/27/19 17:08 - ADDITIONAL ORDERS Additional order review: Laboratory Results 11/27/19 17:08 Sodium 140 Potassium 3.6 Chloride 110 H Carbon Dioxide 22 Anion Gap 8 BUN 21.2 H Creatinine 1.1 Est GFR (CKD-EPI)AfAm 57.28 Est GFR (CKD-EPI)NonAf 49.42 Random Glucose 147 H Calcium 8.9 Phosphorus 3.7 Magnesium 2.2 Total Bilirubin 0.1 L AST 11 L ALT 14 Alkaline Phosphatase 72 Creatine Kinase 30 Troponin I < 0.02 Total Protein 6.7 Albumin 3.3 L 11/27/19 17:08 RBC 4.63 MCV 81.0 MCHC 32.0 RDW 14.3 MPV 7.2 L Neutrophils % 77.3 Lymphocytes % 14.7 Monocytes % 6.2 Eosinophils % 0.8 D Basophils % 1.0 - RADIOLOGY Radiograph Interpretation: EXAM#: TYPE/EXAM: RESULT: [id number] CT/HEAD CT WITHOUT CONTRAST Cranial CT without contrast Clinical information: syncope Impression: No CT evidence of acute intracranial pathology. There has been no definite change in comparison to a prior CT exam of 08/03/2019 as noted above. Reported By: Kody Spicer MD 11/27/19 18:18
[2019-11-27 18:20] VITALS: BP 149/73; PULSE 61
[2019-11-27 18:30] LABS: MAGNESIUM 2.2 mg/dL (1.8-2.4); PHOSPHOROUS 3.7 mg/dL (2.5-4.9)
--- NOTE | 2019-11-28 13:35 | EKG ---
Test Reason : Blood Pressure : / mmHG Vent. Rate : 058 BPM Atrial Rate : 058 BPM P-R Int : 202 ms QRS Dur : 102 ms QT Int : 416 ms P-R-T Axes : 074 -31 069 degrees QTc Int : 408 ms POOR DATA QUALITY, INTERPRETATION MAY BE ADVERSELY AFFECTED SINUS BRADYCARDIA WITH PREMATURE SUPRAVENTRICULAR COMPLEXES LEFT AXIS DEVIATION NONSPECIFIC ST AND T WAVE ABNORMALITY ABNORMAL ECG WHEN COMPARED WITH ECG OF 03-AUG-2019 02:15, PREMATURE SUPRAVENTRICULAR COMPLEXES ARE NOW PRESENT NONSPECIFIC T WAVE ABNORMALITY, IMPROVED IN INFERIOR LEADS T WAVE INVERSION NOW EVIDENT IN LATERAL LEADS QT HAS SHORTENED Confirmed by MD ARELY, YAYO ([id number]) on 11/28/2019 1:35:18 PM Referred By: Confirmed By:YAYO MCGEE MD
== END 2019-11-27 19:39 | disposition home or self-care (01) ==
LOC: JER 16:02
DX: R55 Syncope and collapse (principal); I10 Essential (primary) hypertension; E78.5 Hyperlipidemia, unspecified; K21.9 Gastro-esophageal reflux disease without esophagitis; G30.8 Other Alzheimer's disease; F02.80 Dementia in other diseases classified elsewhere, unspecified severity, without behavioral disturbance, psychotic disturbance, mood disturbance, and anxiety
CPT/HCPCS: 36415; 70450-TC; 71045-TC-FY; 80053; 82550; 83735; 84100; 84484; 85025; 93005; 93010; 99283-25